=== PATIENT | male | born 1975 | race Caucasian/White ===

== ENCOUNTER 2018-03-30 21:46 | Emergency (ER) | payer SELFPAY ==
[2018-03-30] MEDS ORDERED: HYDROCODONE/APAP 10/325 TAB ONE (22:40)
--- NOTE | 2018-03-30 23:12 | ER ---
Nurse's Notes [facility] Name: Ilia Kamara Age: 42 yrs Sex: Male : 1975 Arrival Date: 03/30/2018 Time: 21:47 Bed 13 Private MD: Thad Hutchison Diagnosis: Pain in left shoulder Presentation: 03/30 21:57 Presenting complaint: Patient states: left shoulder pain at joint. pt with decreased ak1 ROM in left shoulder due to pain. Transition of care: patient was not received from another setting of care. Onset of symptoms was March 30, 2018. Risk Assessment: Do you want to hurt yourself or someone else? Patient reports no desire to harm self or others. Care prior to arrival: None. 21:57 Method Of Arrival: Ambulatory ak1 21:57 Acuity: WILLI 4 ak1 Triage Assessment: 22:00 General: Appears in no apparent distress. Behavior is calm, cooperative. ak1 Historical: - Allergies: 21:59 No Known Allergies; ak1 - Home Meds: 21:59 Plavix 75 mg Oral tab [Active]; Metoprolol Tartrate Oral [Active]; Metformin Oral ak1 [Active]; levothyroxine oral [Active]; Lisinopril Oral [Active]; aspirin 81 mg Oral chew [Active]; - PMHx: 21:59 heart attack; Hypertension; Hyperlipidemia; Diabetes - NIDDM; Hypothyroidism; ak1 - PSHx: 21:59 Heart Cath; ak1 - Immunization history:: Adult Immunizations unknown. - Social history:: Smoking status: Patient uses tobacco products, smokes two packs cigarettes per day. - Ebola Screening: : No symptoms or risks identified at this time. Screenin:59 Abuse screen: Denies threats or abuse. Denies injuries from another. Nutritional ak1 screening: No deficits noted. Tuberculosis screening: No symptoms or risk factors identified. Fall Risk None identified. Assessment: 23:38 Reassessment: Patient appears in no apparent distress at this time. Patient is alert, aa1 oriented x 3, equal unlabored respirations, skin warm/dry/pink. Discussed d/c \T\ f/u instructions with pt \T\ spouse; denies questions or concerns at this time. Vital Signs: 21:59 BP 152 / 85; Pulse 88; Resp 18; Temp 98.8(O); Pulse Ox 97% on R/A; Weight 158.76 kg ak1 (R); Height 6 ft. 2 in. (187.96 cm) (R); Pain 9/10; 23:38 BP 149 / 81; Pulse 85; Resp 18; Pulse Ox 99% on R/A; Pain 6/10; aa1 21:59 Body Mass Index 44.94 (158.76 kg, 187.96 cm) ak1 ED Course: 21:47 Patient arrived in ED. ds1 21:47 Thad Hutchison MD is Private Physician. ds1 21:57 Triage completed. ak1 21:59 Arm band placed on Patient placed in an exam room, on a stretcher, Patient notified of ak1 wait time. 22:00 Patient has correct armband on for positive identification. ak1 22:05 Tremaine Winter NP is PHCP. pm1 22:05 David Coy MD is Attending Physician. pm1 22:14 Anastacia Ureña RN is Primary Nurse. aa1 23:09 Afshin Grimm MD is Referral Physician. pm1 23:38 No provider procedures requiring assistance completed. Patient did not have IV access aa1 during this emergency room visit. Sling applied to left arm. 03/31 00:27 Shoulder Left (2 View) XRAY In Process Unspecified. EDMS Administered Medications: 03/30 22:37 Drug: [place] 10 mg-325 mg 1 tabs Route: PO; aa1 23:38 Follow up: Response: No adverse reaction; Pain is decreased aa1 Outcome: 23:12 Discharge ordered by . pm1 23:38 Discharged to home ambulatory, with significant other. aa1 23:38 Condition: good 23:38 Discharge instructions given to patient, significant other, Instructed on discharge instructions, follow up and referral plans. medication usage, Demonstrated understanding of instructions, follow-up care, medications, Prescriptions given X 1. 23:41 Patient left the ED. aa1 Signatures: Dispatcher [employer] EDMS Anastacia Ureña, RN RN aa1 Rosie Delgadillo ds1 Leslie Cardona RN RN ak1 Tremaine Winter NP SHELL MACHINE OPERATOR pm1
--- NOTE | 2018-03-30 23:12 | EDPHYS ---
Physician Documentation [facility] Name: Ilia Kamara Age: 42 yrs Sex: Male : 1975 Arrival Date: 03/30/2018 Time: 21:47 Bed 13 Private MD: Thad Hutchison ED Physician David Coy HPI: 03/30 23:02 This 42 yrs old Male presents to ER via Ambulatory with complaints of Left pm1 Shoulder Pain. 23:02 The patient or guardian complains of decreased range of motion, pain, that is acute. pm1 left shoulder. Context: The problem was sustained at home, resulted from Thinks he sleep wrong on it, The patient experiences decreased range of motion, when attempts to raise arm, The patient reports no obvious deformity. Onset: The symptoms/episode began/occurred 1 week(s) ago. Modifying factors: the symptoms are alleviated by holding left arm against his body, The symptoms are aggravated by movement, rotation of arm. Associated signs and symptoms: Pertinent negatives: abdominal pain, chest pain, shortness of breath. Severity of symptoms: in the emergency department the symptoms are unchanged. Treatment prior to arrival includes: no previous treatment. The patient has not experienced similar symptoms in the past. The patient has not recently seen a physician. Historical: - Allergies: 21:59 No Known Allergies; ak1 - Home Meds: 21:59 Plavix 75 mg Oral tab [Active]; Metoprolol Tartrate Oral [Active]; Metformin Oral ak1 [Active]; levothyroxine oral [Active]; Lisinopril Oral [Active]; aspirin 81 mg Oral chew [Active]; - PMHx: 21:59 heart attack; Hypertension; Hyperlipidemia; Diabetes - NIDDM; Hypothyroidism; ak1 - PSHx: 21:59 Heart Cath; ak1 - Immunization history:: Adult Immunizations unknown. - Social history:: Smoking status: Patient uses tobacco products, smokes two packs cigarettes per day. - Ebola Screening: : No symptoms or risks identified at this time. ROS: 23:02 Constitutional: Negative for fever, chills, and weight loss, Eyes: Negative for injury, pm1 pain, redness, and discharge, ENT: Negative for injury, pain, and discharge, Neck: Negative for injury, pain, and swelling, Cardiovascular: Negative for chest pain, palpitations, and edema, Respiratory: Negative for shortness of breath, cough, wheezing, and pleuritic chest pain, Abdomen/GI: Negative for abdominal pain, nausea, vomiting, diarrhea, and constipation, Back: Negative for injury and pain. 23:02 Skin: Negative for injury, rash, and discoloration, Neuro: Negative for headache, weakness, numbness, tingling, and seizure. 23:02 MS/extremity: Positive for decreased range of motion, pain, of the left shoulder, Negative for deformity, paresthesias. Exam: 23:02 Constitutional: This is a well developed, well nourished patient who is awake, alert, pm1 and in no acute distress. Head/Face: Normocephalic, atraumatic. Eyes: Pupils equal round and reactive to light, extra-ocular motions intact. Lids and lashes normal. Conjunctiva and sclera are non-icteric and not injected. Cornea within normal limits. Periorbital areas with no swelling, redness, or edema. ENT: Nares patent. No nasal discharge, no septal abnormalities noted. Tympanic membranes are normal and external auditory canals are clear. Oropharynx with no redness, swelling, or masses, exudates, or evidence of obstruction, uvula midline. Mucous membranes moist. Neck: Trachea midline, no thyromegaly or masses palpated, and no cervical lymphadenopathy. Supple, full range of motion without nuchal rigidity, or vertebral point tenderness. No Meningismus. Chest/axilla: Normal chest wall appearance and motion. Nontender with no deformity. No lesions are appreciated. Cardiovascular: Regular rate and rhythm with a normal S1 and S2. No gallops, murmurs, or rubs. No pulse deficits. Respiratory: Lungs have equal breath sounds bilaterally, clear to auscultation and percussion. No rales, rhonchi or wheezes noted. No increased work of breathing, no retractions or nasal flaring. Abdomen/GI: Soft, non-tender, with normal bowel sounds. No distension or tympany. No guarding or rebound. No evidence of tenderness throughout. Back: No spinal tenderness. No costovertebral tenderness. Full range of motion. Skin: Warm, dry with normal turgor. Normal color with no rashes, no lesions, and no evidence of cellulitis. 23:02 Musculoskeletal/extremity: Extremities: grossly normal except: noted in the left shoulder: tenderness, focal tenderness at the supraspinatus insertion point. Patient unable to lift up left arm actively and passively above his left shoulder due to pain. left shoulder pain with passive left arm rotation, Circulation is intact in all extremities. Sensation intact. 23:02 Neuro: Orientation: is normal, Motor: moves all fours, Sensation: is normal, no obvious gross deficits. Vital Signs: 21:59 BP 152 / 85; Pulse 88; Resp 18; Temp 98.8(O); Pulse Ox 97% on R/A; Weight 158.76 kg ak1 (R); Height 6 ft. 2 in. (187.96 cm) (R); Pain 9/10; 23:38 BP 149 / 81; Pulse 85; Resp 18; Pulse Ox 99% on R/A; Pain 6/10; aa1 21:59 Body Mass Index 44.94 (158.76 kg, 187.96 cm) ak1 MDM: 22:05 Patient medically screened. pm1 23:07 Data reviewed: vital signs. Data interpreted: Pulse oximetry: on room air is 97 %. pm1 Interpretation: normal. Counseling: I had a detailed discussion with the patient and/or guardian regarding: the historical points, exam findings, and any diagnostic results supporting the discharge/admit diagnosis, radiology results, the need for outpatient follow up, for definitive care, a orthopedic surgeon, MRI, to return to the emergency department if symptoms worsen or persist or if there are any questions or concerns that arise at home. 23:07 Differential diagnosis: adhesive capsulitis, rotator cuff injury, arthritis. pm1 03/30 22:11 Order name: Shoulder Left (2 View) XRAY pm1 03/30 22:11 Order name: Sling; Complete Time: 23:38 pm1 Administered Medications: 22:37 Drug: [place] 10 mg-325 mg 1 tabs Route: PO; aa1 23:38 Follow up: Response: No adverse reaction; Pain is decreased aa1 Disposition: 03/31 03:09 Co-signature as Attending Physician, David Coy MD. Disposition: 03/30/18 23:12 Discharged to Home. Impression: Pain in left shoulder. - Condition is Stable. - Discharge Instructions: Shoulder Pain, How to Use a Sling. - Prescriptions for Tylenol- Codeine #3 300-30 mg Oral Tablet - take 2 tablets by ORAL route every 6 hours As needed; 20 tablet. - Medication Reconciliation Form, Thank You Letter, Prescription Opioid Use form. - Follow up: Emergency Department; When: As needed; Reason: Worsening of condition. Follow up: Afshin Grimm MD; When: 2 - 3 days; Reason: Recheck today's complaints, Continuance of care, Re-evaluation by your physician. - Problem is new. - Symptoms have improved. Signatures: Dispatcher [employer] EDMS Anastacia Ureña RN RN aa1 Leslie Cardona RN RN ak1 Tremaine Winter, EXHAUST WORKER EXHAUST WORKER pm1 David Coy MD MD gs Corrections: (The following items were deleted from the chart) 03/30 23:41 23:12 03/30/2018 23:12 Discharged to Home. Impression: Pain in left shoulder. Condition aa1 is Stable. Forms are Medication Reconciliation Form, Thank You Letter, Antibiotic Education, Prescription Opioid Use. Follow up: Emergency Department; When: As needed; Reason: Worsening of condition. Follow up: Afshin Grimm; When: 2 - 3 days; Reason: Recheck today's complaints, Continuance of care, Re-evaluation by your physician. Problem is new. Symptoms have improved. pm1
[2018-03-30 23:45] VITALS: TEMP 98.8
[2018-03-30 23:47] VITALS: BP 149/81; O2SAT 99
--- NOTE | 2018-03-31 07:53 | RAD REPORT ---
EXAM DESCRIPTION: RAD - Shoulder Left 2 View - 03/31/2018 12:26 am COMPARISON: None. TECHNIQUE: Internal and external rotation views of the left shoulder were obtained. FINDINGS: There is no fracture or dislocation. AC joint within normal limits. No spurring or measura ble degenerative change. Acromial humeral joint space is normal with no soft tissue calcifications. N o acute or suspicious findings. IMPRESSION: Negative two-view left shoulder examination.
== END 2018-03-30 23:41 | disposition home or self-care (01) ==
LOC: ER 21:46
DX: M25.512 Pain in left shoulder (principal); F17.210 Nicotine dependence, cigarettes, uncomplicated; I10 Essential (primary) hypertension; E11.9 Type 2 diabetes mellitus without complications; E78.5 Hyperlipidemia, unspecified; E03.9 Hypothyroidism, unspecified; Z79.01 Long term (current) use of anticoagulants; Z79.82 Long term (current) use of aspirin
CPT/HCPCS: 99284

== ENCOUNTER 2018-05-20 11:28 | Emergency (ER) | payer SELFPAY ==
[2018-05-20] MEDS ORDERED: MEPERIDINE HCL 50 MG/ML AMP ONE (12:18)
[2018-05-20] MEDS ORDERED: NA CHLORIDE 0.9% 1,000 ML ONE (12:18)
--- NOTE | 2018-05-20 12:43 | RAD REPORT ---
EXAM DESCRIPTION: CT - Head Brain Wo Cont - 05/20/2018 12:31 pm CLINICAL HISTORY: HEADACHE COMPARISON: None. TECHNIQUE: Axial 5 mm thick images of the head were obtained without IV contrast. All CT scans are performed using dose optimization technique as appropriate and may include automated exposure control or mA/KV adjustment according to patient size. FINDINGS: No intracranial hemorrhage, mass, edema or shift of mid-line structures. No acute infarcti on changes seen. No abnormal extra-axial fluid collections. Ventricles are asymmetric as a normal kisha iant. Mastoid air cells and visualized portions of the paranasal sinuses are clear. No acute bony findings. IMPRESSION: Negative non-contrast CT head examination. No significant change from comparison.
[2018-05-20 12:53] LABS: Absolute Lymphocytes (CBC) 4.8 K/uL (0.7-4.9); Absolute Monocytes 1.2 K/uL (0.1-1.3); Absolute Neutrophil 7.5 K/uL (1.8-8.0); Eosinophils % 3.9 % (0-4.4); Hematocrit 44.1 % (39.6-49.0); MCH 32.6 pg (27.0-35.0); MCV 93.4 fL (80-100); MPV 8.8 fL (7.6-11.3); Monocytes % 8.2 % (3.3-12.3); RBC Red Blood Cell Count 4.73 M/uL (4.33-5.43)
[2018-05-20 12:58] LABS: Protime INR 0.97
[2018-05-20 13:13] LABS: BUN Blood Urea Nitrogen 24 mg/dL (7-18); Bicarbonate 24 mmol/L (21-32); Glucose Level 133 mg/dL (74-106); Potassium 3.3 mmol/L (3.5-5.1); Sodium Level 139 mmol/L (136-145); Troponin (Emerg Dept Use Only) < 0.02 ng/mL (0.0-0.045)
--- NOTE | 2018-05-20 13:26 | RAD REPORT ---
EXAM DESCRIPTION: RAD - Chest Single View - 05/20/2018 1:18 pm CLINICAL HISTORY: CHEST PAIN Chest pain. COMPARISON: CHEST SINGLE VIEW dated 04/01/2015 FINDINGS: Portable technique limits examination quality. The lungs are grossly clear. The heart is normal in size. No displaced fractures. IMPRESSION: No acute intrathoracic process suspected.
[2018-05-20] MEDS ORDERED: POTASSIUM CL SA 10 MEQ TAB PO ONE (14:20)
[2018-05-20] MEDS ORDERED: DEXAMETHASONE 4 MG/ML VIAL ONE (14:49)
[2018-05-20] MEDS ORDERED: KETOROLAC 30 MG/ML INJ ONE (14:49)
--- NOTE | 2018-05-20 15:04 | EDPHYS ---
Physician Documentation [facility] Name: Ilia Kamara Age: 42 yrs Sex: Male : 1975 Arrival Date: 05/20/2018 Time: 11:31 Bed 6 Private MD: Thad Hutchison ED Physician Silvio May HPI: 05/20 12:38 This 42 yrs old Male presents to ER via Ambulatory with complaints of rn Headache, High Blood Pressure. 12:38 The patient complains of pain to the forehead. The patient describes the headache as rn stabbing. Onset: The symptoms/episode began/occurred 1 week(s) ago. Associated signs and symptoms: Pertinent negatives: altered mental status, neck stiffness, rash, vision changes, vision loss, weakness, vertigo. Severity of symptoms: At its worst the pain was moderate, in the emergency department the pain has improved. The symptoms are alleviated by nothing. the symptoms are aggravated by nothing. The patient has experienced similar episodes in the past. Reports headache for last week, worse today, reports has not been using CPAP machine because of mucosal dryness. Reports intermittent right forehead stabbing pain, better with Excedrin and sleep, keeps coming back, worse in morning and when bending over, better with standing. No head trauma. Reports also for last 2 weeks having brief sharp chest pains, non-radiating, no trauma, has been coughing due to "crud" that rest of family has as well. . Historical: - Allergies: 11:37 No Known Allergies; hj - Home Meds: 11:37 aspirin 81 mg Oral chew [Active]; levothyroxine oral [Active]; Metformin Oral [Active]; Metoprolol Tartrate Oral [Active]; Plavix 75 mg Oral tab [Active]; lisinopril-hydrochlorothiazide oral oral [Active]; - PMHx: 11:37 Diabetes - NIDDM; heart attack; Hyperlipidemia; Hypertension; Hypothyroidism; hj - PSHx: 11:37 Heart Cath; hj - Immunization history:: Adult Immunizations up to date. - Social history:: Smoking status: Patient uses tobacco products, Patient uses alcohol. - Ebola Screening: : Patient negative for fever greater than or equal to 101.5 degrees Fahrenheit, and additional compatible Ebola Virus Disease symptoms Patient denies exposure to infectious person Patient denies travel to an Ebola-affected area in the 21 days before illness onset. - Family history:: not pertinent. - Hospitalizations: : No recent hospitalization is reported. ROS: 12:38 Constitutional: Negative for fever, chills, and weight loss, Eyes: Negative for injury, rn pain, redness, and discharge, Neck: Negative for injury, pain, and swelling, Cardiovascular: Negative for palpitations, and edema, Respiratory: Negative for shortness of breath, cough, wheezing, and pleuritic chest pain, Abdomen/GI: Negative for abdominal pain, nausea, vomiting, diarrhea, and constipation, MS/Extremity: Negative for injury and deformity, Skin: Negative for injury, rash, and discoloration, Neuro: Negative for weakness, numbness, tingling, and seizure. Exam: 12:38 Constitutional: This is a well developed, well nourished patient who is awake, alert, rn and in no acute distress. Head/Face: Normocephalic, atraumatic. Eyes: Pupils equal round and reactive to light, extra-ocular motions intact.Conjunctiva and sclera are non-icteric and not injected. Cornea within normal limits. Periorbital areas with no swelling, redness, or edema. Cardiovascular: Brian cardic, regular, no murmur. No pulse deficits. Respiratory: Lungs have equal breath sounds bilaterally, clear to auscultation. No increased work of breathing, no retractions or nasal flaring. Abdomen/GI: soft, non-tender Skin: Warm, dry with normal turgor. Normal color with no rashes, no lesions, and no evidence of cellulitis. MS/ Extremity: Pulses equal, no cyanosis. Neurovascular intact. Full, normal range of motion. Equal circumference. Neuro: Awake and alert, GCS 15, oriented to person, place, time, and situation. Cranial nerves II-XII grossly intact. Motor strength 5/5 in all extremities. Sensory grossly intact. Cerebellar exam normal. Vital Signs: 11:38 BP 147 / 84; Pulse 67; Resp 18; Temp 96.9(TE); Pulse Ox 95% on R/A; Weight 170.1 kg; hj Height 6 ft. 2 in. (187.96 cm); Pain 8/10; 12:37 BP 124 / 62; Pulse 55; Resp 14; Temp 97.6; Pulse Ox 99% on R/A; Pain 3/10; ch 14:10 BP 123 / 80; Pulse 56; Resp 11; Temp 98.8; Pulse Ox 99% on R/A; Pain 7/10; ch 14:50 BP 120 / 71; Pulse 52; Resp 11; Pulse Ox 97% on R/A; Pain 6/10; ch 15:12 BP 124 / 84; Pulse 50; Resp 14; Pulse Ox 97% ; rv 11:38 Body Mass Index 48.15 (170.10 kg, 187.96 cm) hj [place] Coma Score: 14:35 Eye Response: spontaneous(4). Verbal Response: oriented(5). Motor Response: obeys rn commands(6). Total: 15. MDM: 11:41 Patient medically screened. rn 14:34 Differential diagnosis: hypertensive headache, intracerebral hemorrhage, migraine, rn tension headache, vasomotor headache, viral syndrome, chest pain, effects 2/2 sleep apnea. 14:36 Data reviewed: vital signs, nurses notes, lab test result(s), EKG, radiologic studies, rn CT scan, plain films, and as a result, I will discharge patient. Counseling: I had a detailed discussion with the patient and/or guardian regarding: the historical points, exam findings, and any diagnostic results supporting the discharge/admit diagnosis, lab results, radiology results, the need for outpatient follow up, to return to the emergency department if symptoms worsen or persist or if there are any questions or concerns that arise at home. Response to treatment: the patient's symptoms have markedly improved after treatment. 15:02 Special discussion: I discussed with the patient/guardian in detail that at this point rn there is no indication for admission to the hospital. It is understood, however, that if the symptoms persist or worsen the patient needs to return immediately for re-evaluation. Based on the history and exam findings, there is no indication for further emergent testing or inpatient evaluation. I discussed with the patient/guardian the need to see the kiln loader for further evaluation of the symptoms. I discussed with the patient/guardian the need to see the neurologist for further evaluation of the symptoms. 15:02 ED course: IMproved, ambulatory to bathroom, recommend continuation of CPAP for sleep rn apnea and medication compliance. . 15:03 Counseling: I had a detailed discussion with the patient and/or guardian regarding: the rn presence of at least one elevated blood pressure reading (>120/80) during this emergency department visit. 05/20 12:05 Order name: Basic Metabolic Panel; Complete Time: 13:41 rn 05/20 12:05 Order name: CBC with Diff; Complete Time: 13:01 rn 05/20 12:05 Order name: Protime (+inr); Complete Time: 13:01 rn 05/20 12:05 Order name: Ptt, Activated; Complete Time: 13:01 rn 05/20 12:05 Order name: Troponin (emerg Dept Use Only); Complete Time: 13:41 rn 05/20 12:05 Order name: Flu; Complete Time: 13:41 rn 05/20 12:05 Order name: CT Head Brain wo Cont; Complete Time: 13:01 rn 05/20 12:05 Order name: XRAY Chest (1 view); Complete Time: 13:41 rn 05/20 12:05 Order name: [place] Screen Profile; Complete Time: 13:41 rn 05/20 12:05 Order name: EKG; Complete Time: 12:23 rn 05/20 12:05 Order name: Cardiac monitoring; Complete Time: 12:16 rn 05/20 12:05 Order name: EKG - Nurse/Tech; Complete Time: 12:37 rn 05/20 12:05 Order name: IV Saline Lock; Complete Time: 12:16 rn 05/20 12:05 Order name: Labs collected and sent; Complete Time: 12:37 rn 05/20 12:05 Order name: NPO; Complete Time: 12:17 rn 05/20 12:05 Order name: O2 Per Protocol; Complete Time: 12:17 rn 05/20 12:05 Order name: O2 Sat Monitoring; Complete Time: 12:17 rn Administered Medications: 12:19 Drug: Demerol 50 mg Route: IVP; Site: right antecubital; ch 12:37 Follow up: Response: No adverse reaction; Marked relief of symptoms ch 14:10 Follow up: Response: No adverse reaction; No change in condition ch 12:19 Drug: NS 0.9% 1000 ml Route: IV; Rate: 1000 ml; Site: right antecubital; ch 14:09 Follow up: IV Status: Completed infusion; IV Intake: 1000ml ch 14:09 Drug: Potassium Chloride 40 mEq Route: PO; ch 14:49 Follow up: Response: No adverse reaction ch 14:49 Drug: Decadron - Dexamethasone 10 mg Route: IVP; Site: right antecubital; ch 15:20 Follow up: Response: No adverse reaction rv 14:49 Drug: TORadol 30 mg Route: IVP; Site: right antecubital; ch 15:19 Follow up: Response: No adverse reaction rv Disposition: 05/20/18 15:04 Discharged to Home. Impression: Headache, Chest pain, unspecified, Sleep apnea. - Condition is Stable. - Discharge Instructions: Nonspecific Chest Pain, General Headache Without Cause, Hypertension. - Medication Reconciliation Form, Thank You Letter, Antibiotic Education, Prescription Opioid Use form. - Follow up: Thad Hutchison MD; When: As needed; Reason: Recheck today's complaints, Re-evaluation by your physician. - Problem is new. - Symptoms have improved. Signatures: Dispatcher [employer] EDMS Miranda King RN RN ch Nieto, Roman, MD MD rn Joaquin, Henry, RN RN hj Vicente, Ronaldo, RN RN rv Corrections: (The following items were deleted from the chart) 15:21 15:04 05/20/2018 15:04 Discharged to Home. Impression: Headache; Chest pain, rv unspecified; Sleep apnea. Condition is Stable. Forms are Medication Reconciliation Form, Thank You Letter, Antibiotic Education, Prescription Opioid Use. Follow up: Thad Hutchison; When: As needed; Reason: Recheck today's complaints, Re-evaluation by your physician. Problem is new. Symptoms have improved. rn
--- NOTE | 2018-05-20 15:04 | ER ---
Nurse's Notes [facility] Name: Ilia Kamara Age: 42 yrs Sex: Male : 1975 Arrival Date: 05/20/2018 Time: 11:31 Bed 6 Private MD: Thad Hutchison Diagnosis: Headache;Chest pain, unspecified;Sleep apnea Presentation: 05/20 11:33 Presenting complaint: Patient states: i work nights, i wake up with a headache, hj stabbing pain, checked my BP- 161/109; reports cold sweats; reports nausea; denies weakness;. Transition of care: patient was not received from another setting of care. Onset of symptoms was May 20, 2018. Risk Assessment: Do you want to hurt yourself or someone else? Patient reports no desire to harm self or others. Initial Sepsis Screen: Does the patient meet any 2 criteria? No. Patient's initial sepsis screen is negative. Does the patient have a suspected source of infection? No. Patient's initial sepsis screen is negative. Care prior to arrival: None. 11:33 Method Of Arrival: Ambulatory 11:33 Acuity: WILLI 3 hj Triage Assessment: 11:37 Headache History: Denies prior headaches. General: Appears in no apparent distress. hj uncomfortable, Behavior is calm, cooperative, appropriate for age. Pain: Complains of pain in headache Pain currently is 8 out of 10 on a pain scale. Pain began 1 day ago. Also complains of nausea. Neuro: Level of Consciousness is awake, alert, obeys commands, Oriented to person, place, time, situation, Appropriate for age. Historical: - Allergies: 11:37 No Known Allergies; hj - Home Meds: 11:37 aspirin 81 mg Oral chew [Active]; levothyroxine oral [Active]; Metformin Oral [Active]; hj Metoprolol Tartrate Oral [Active]; Plavix 75 mg Oral tab [Active]; lisinopril-hydrochlorothiazide oral oral [Active]; - PMHx: 11:37 Diabetes - NIDDM; heart attack; Hyperlipidemia; Hypertension; Hypothyroidism; hj - PSHx: 11:37 Heart Cath; hj - Immunization history:: Adult Immunizations up to date. - Social history:: Smoking status: Patient uses tobacco products, Patient uses alcohol. - Ebola Screening: : Patient negative for fever greater than or equal to 101.5 degrees Fahrenheit, and additional compatible Ebola Virus Disease symptoms Patient denies exposure to infectious person Patient denies travel to an Ebola-affected area in the 21 days before illness onset. - Family history:: not pertinent. - Hospitalizations: : No recent hospitalization is reported. Screenin:38 Abuse screen: Denies threats or abuse. Denies injuries from another. Nutritional hj screening: No deficits noted. Tuberculosis screening: No symptoms or risk factors identified. Fall Risk None identified. Assessment: 11:57 General: Appears in no apparent distress. comfortable, Behavior is calm, cooperative, ch appropriate for age. Pain: Complains of pain in top of head, forehead, right frontal area, right temporal area, right occipital area and right base of the skull Pain currently is 6 out of 10 on a pain scale. at worst was 9 out of 10 on a pain scale. Neuro: Level of Consciousness is awake, alert, obeys commands, Oriented to person, place, time, situation, Correction Worker are equal bilaterally Moves all extremities. Full function Gait is steady, Speech is normal, Facial symmetry appears normal, Facial symmetry: tongue is midline, Pupils are PERRLA, Reports headache in right frontal area, occipital area, nausea. Respiratory: Airway is patent Respiratory effort is even, unlabored, Breath sounds are diminished bilaterally. pt lung sounds are slightly muffled, pt has large amounts of adipose tissue. GI: Abdomen is non-distended, obese, Bowel sounds present X 4 quads. Abd is soft and non tender X 4 quads. Reports nausea. : No signs and/or symptoms were reported regarding the genitourinary system. Derm: Skin is intact, Skin is dry, Skin is pale, Skin temperature is warm. Musculoskeletal: No signs and/or symptoms reported regarding the musculoskeletal system. 12:23 Reassessment: Patient appears in no apparent distress at this time. computers are not ch interacting with eachother, awaiting lables to print. 12:37 Reassessment: Patient appears in no apparent distress at this time. Patient and/or ch family updated on plan of care and expected duration. Pain level reassessed. Patient is alert, oriented x 3, equal unlabored respirations, skin warm/dry/pink. Patient states feeling better. Patient states symptoms have improved. 13:11 Reassessment: Patient appears in no apparent distress at this time. Patient and/or ch family updated on plan of care and expected duration. Pain level reassessed. Patient is alert, oriented x 3, equal unlabored respirations, skin warm/dry/pink. pt states his headache is back. no s/s of distress. 14:10 Reassessment: Patient appears in no apparent distress at this time. No changes from previously documented assessment. Patient and/or family updated on plan of care and expected duration. Pain level reassessed. Patient is alert, oriented x 3, equal unlabored respirations, skin warm/dry/pink. pt falls asleep, has slight apnic period, then awakens. pt c/o headache when he wakes up. 14:50 Reassessment: Patient appears in no apparent distress at this time. Patient and/or ch family updated on plan of care and expected duration. Pain level reassessed. Patient is alert, oriented x 3, equal unlabored respirations, skin warm/dry/pink. pt states his pain is slightly better, but not gone. pt medicated per orders. no s/s of distress, urine at bedside. Vital Signs: 11:38 BP 147 / 84; Pulse 67; Resp 18; Temp 96.9(TE); Pulse Ox 95% on R/A; Weight 170.1 kg; hj Height 6 ft. 2 in. (187.96 cm); Pain 8/10; 12:37 BP 124 / 62; Pulse 55; Resp 14; Temp 97.6; Pulse Ox 99% on R/A; Pain 3/10; ch 14:10 BP 123 / 80; Pulse 56; Resp 11; Temp 98.8; Pulse Ox 99% on R/A; Pain 7/10; ch 14:50 BP 120 / 71; Pulse 52; Resp 11; Pulse Ox 97% on R/A; Pain 6/10; ch 15:12 BP 124 / 84; Pulse 50; Resp 14; Pulse Ox 97% ; rv 11:38 Body Mass Index 48.15 (170.10 kg, 187.96 cm) [place] Coma Score: 14:35 Eye Response: spontaneous(4). Verbal Response: oriented(5). Motor Response: obeys rn commands(6). Total: 15. ED Course: 11:31 Patient arrived in ED. mr 11:31 Thad Hutchison MD is Private Physician. mr 11:35 Triage completed. hj 11:38 Arm band placed on left wrist. hj 11:38 Patient has correct armband on for positive identification. Placed in gown. Bed in low hj position. Call light in reach. Side rails up X 1. Adult w/ patient. 11:41 Silvio May MD is Attending Physician. rn 11:43 Thad Castro, RN is Primary Nurse. bp 12:00 Miranda King, RN is Primary Nurse. ch 12:02 Initial lab(s) drawn, by me. Inserted saline lock: 20 gauge in right antecubital area, jb1 using aseptic technique. Blood collected. 12:29 CT completed. Patient tolerated procedure well. Patient moved to CT via stretcher. jg6 Patient moved to radiology. Patient moved back from CT. 12:30 CT Head Brain wo Cont In Process Unspecified. EDMS 12:41 EKG done, by it technical architect. reviewed by Silvio May MD. at1 13:17 X-ray completed. Portable x-ray completed in exam room. Patient tolerated procedure ls3 well. 13:19 XRAY Chest (1 view) In Process Unspecified. EDMS 14:11 No apparent distress. Resting quietly. Appears to be sleeping. ch 14:11 aquatics instructor on. Pulse ox on. NIBP on. Warm blanket given. Pillow given. Verbal ch reassurance given. 14:11 No provider procedures requiring assistance completed. ch 15:03 Thad Hutchison MD is Referral Physician. rn 15:19 IV discontinued, bleeding controlled, No redness/swelling at site. Pressure dressing rv applied. Administered Medications: 12:19 Drug: Demerol 50 mg Route: IVP; Site: right antecubital; ch 12:37 Follow up: Response: No adverse reaction; Marked relief of symptoms ch 14:10 Follow up: Response: No adverse reaction; No change in condition ch 12:19 Drug: NS 0.9% 1000 ml Route: IV; Rate: 1000 ml; Site: right antecubital; ch 14:09 Follow up: IV Status: Completed infusion; IV Intake: 1000ml ch 14:09 Drug: Potassium Chloride 40 mEq Route: PO; ch 14:49 Follow up: Response: No adverse reaction ch 14:49 Drug: Decadron - Dexamethasone 10 mg Route: IVP; Site: right antecubital; ch 15:20 Follow up: Response: No adverse reaction rv 14:49 Drug: TORadol 30 mg Route: IVP; Site: right antecubital; 15:19 Follow up: Response: No adverse reaction rv Intake: 14:09 IV: 1000ml; Total: 1000ml. Outcome: 15:04 Discharge ordered by . rn 15:19 Discharged to home ambulatory. rv 15:19 Condition: good 15:19 Discharge instructions given to patient, family, Instructed on discharge instructions, follow up and referral plans. Demonstrated understanding of instructions, follow-up care. 15:21 Patient left the ED. rv Signatures: Dispatcher [employer] EDMS Alton Covarrubias jb1 Miranda King, RN MAGEN Walters, Silvio Basilio MD MD rn Gonzales, Amanda, construction equipment operator EKG Tat1 Sumit Bryant RN MAGEN Thad Castro, RN RN Jay Guzman RN MAGEN rv Jerica Soni jg6 Alma Mcbride ls3 Corrections: (The following items were deleted from the chart) 11:40 11:38 Pulse 67bpm; Resp 18bpm; Pulse Ox 95% RA; Temp 96.9F Temporal; 170.1 kg; Height 6 hj ft. 2 in.; BMI: 48.1; Pain 8/10; hj 11:41 11:38 Pulse 67bpm; Resp 18bpm; Pulse Ox 95% RA; Temp 96.9F Temporal; 170.1 kg; Height 6 hj ft. 2 in.; BMI: 48.1; Pain 8/10; hj
[2018-05-20 15:28] VITALS: TEMP 98.8
[2018-05-20 15:29] VITALS: O2SAT 97
[2018-05-20 15:30] VITALS: BP 124/84
--- NOTE | 2018-05-20 18:05 | EKG ---
Test Date: 2018-05-20 Test Time: 12:39:49 Social Worker [employer]: [employer] ME[employer]MENT RESULTS: Intervals: Rate: 53 DE: 204 QRSD: 116 QT: 390 QTc: 365 [place]: P: 47 DE: 204 QRS: 13 T: 113 INTERPRETIVE STATEMENTS: Sinus bradycardia Inferior infarct, age undetermined Abnormal ECG Compared to ECG 09/16/2016 21:44:24 Sinus rhythm no longer present Left posterior fascicular block no longer present Myocardial infarct finding still present Electronically Signed On 05-20-18 18:03:09 DIAGRAMMER AND SEAMER by Sanju Rico
== END 2018-05-20 15:21 | disposition home or self-care (01) ==
LOC: ER 11:28
DX: R07.9 Chest pain, unspecified (principal); G47.30 Sleep apnea, unspecified; E11.9 Type 2 diabetes mellitus without complications; E78.5 Hyperlipidemia, unspecified; I10 Essential (primary) hypertension; E03.9 Hypothyroidism, unspecified
CPT/HCPCS: 36415; 70450; 71045; 80048; 84484; 85025; 85610; 85730; 86308; 87804; 93005; 96361; 96374; 96375; 99285; J2175; J7030

== ENCOUNTER 2018-09-08 23:49 | Emergency (ER) | payer SELFPAY ==
[2018-09-09 00:45] LABS: Absolute Lymphocytes (CBC) 4.1 K/uL (0.7-4.9); Absolute Monocytes 1.2 K/uL (0.1-1.3); Absolute Neutrophil 6.8 K/uL (1.8-8.0); Basophils % 1.3 % (0-1.3); Eosinophils % 4.1 % (0-4.4); Hematocrit 49.5 % (39.6-49.0); Lymphocytes % 32.5 % (15.3-44.8); MPV 8.4 fL (7.6-11.3); Monocytes % 9.1 % (3.3-12.3)
[2018-09-09 00:46] LABS: Protime INR 0.97
[2018-09-09 01:01] LABS: ALT/SGPT 42 U/L (12-78); AST/SGOT 23 U/L (15-37); Albumin 3.5 g/dL (3.4-5.0); Alkaline Phosphatase 69 U/L (45-117); BUN Blood Urea Nitrogen 19 mg/dL (7-18); Bicarbonate 27 mmol/L (21-32); Bilirubin Direct < 0.1 mg/dL (0-0.2); Bilirubin Total 0.2 mg/dL (0.2-1.0); Glucose Level 137 mg/dL (74-106); Magnesium 1.9 mg/dL (1.8-2.4); NT PRO-BNP 57 pg/mL (<125); Potassium 3.8 mmol/L (3.5-5.1); Protein, Total 7.6 g/dL (6.4-8.2); Sodium Level 140 mmol/L (136-145); Troponin (Emerg Dept Use Only) < 0.02 ng/mL (0.0-0.045)
--- NOTE | 2018-09-09 05:17 | ER ---
Nurse's Notes [facility] Name: Ilia Kamara Age: 43 yrs Sex: Male : 1975 Arrival Date: 09/08/2018 Time: 23:52 Bed 16 Private MD: Thad Hutchison Diagnosis: Chest pain, unspecified Presentation: 09/09 00:06 Presenting complaint: Patient states: Pt reports chest pain that radiated to rd arms. ea Pt reports it started yesterday and has not improved. Transition of care: patient was not received from another setting of care. Onset of symptoms was September 09, 2018. Risk Assessment: Do you want to hurt yourself or someone else? Patient reports no desire to harm self or others. Initial Sepsis Screen: Does the patient meet any 2 criteria? No. Patient's initial sepsis screen is negative. Does the patient have a suspected source of infection? No. Patient's initial sepsis screen is negative. Care prior to arrival: None. 00:06 Method Of Arrival: Wheelchair ea 00:06 Acuity: WILLI 3 ea Triage Assessment: 00:12 General: Appears uncomfortable, Behavior is calm, appropriate for age. Pain: Complains ea of pain in right clavicle, left clavicle, anterior aspect of right upper chest, anterior aspect of left upper chest, mid-sternal area, right tricep and left tricep Pain currently is 8 out of 10 on a pain scale. Neuro: Level of Consciousness is awake, alert, obeys commands, Oriented to person, place, time, situation. Cardiovascular: Patient's skin is warm and dry. Respiratory: Airway is patent Respiratory effort is even, unlabored, Respiratory pattern is regular, symmetrical. Historical: - Allergies: 00:11 No Known Allergies; ea - Home Meds: 00:11 aspirin 81 mg Oral chew [Active]; levothyroxine oral [Active]; lisinopril Oral ea [Active]; lisinopril-hydrochlorothiazide Oral [Active]; Metformin Oral [Active]; Metoprolol Tartrate Oral [Active]; Plavix 75 mg Oral tab [Active]; - PMHx: 00:11 Hypothyroidism; Hypertension; Hyperlipidemia; heart attack; Diabetes - NIDDM; ea - PSHx: 00:11 Heart Cath; ea - Immunization history:: Adult Immunizations up to date. - Social history:: Smoking status: Patient uses tobacco products, smokes one pack cigarettes per day. - Ebola Screening: : No symptoms or risks identified at this time. Screenin:15 Abuse screen: Denies threats or abuse. Denies injuries from another. Nutritional aj1 screening: No deficits noted. Tuberculosis screening: No symptoms or risk factors identified. Assessment: 00:15 General: Appears in no apparent distress. uncomfortable, Behavior is calm, cooperative, aj1 appropriate for age. Pain: Complains of pain in right clavicle, left clavicle and mid-sternal area Pain radiates to right arm and left arm Pain currently is 8 out of 10 on a pain scale. Pain began 1 day ago. Is intermittent. Neuro: Level of Consciousness is awake, alert, obeys commands, Oriented to person, place, time, situation, Speech is normal. Cardiovascular: Reports chest pain, shortness of breath, Heart tones S1 S2 present Patient's skin is warm and dry. Rhythm is sinus rhythm. Respiratory: Airway is patent Respiratory effort is even, unlabored, Respiratory pattern is regular, symmetrical, Breath sounds are diminished in left posterior lower lobe and right posterior lower lobe. GI: No signs and/or symptoms were reported involving the gastrointestinal system. : No signs and/or symptoms were reported regarding the genitourinary system. EENT: No signs and/or symptoms were reported regarding the EENT system. Derm: No signs and/or symptoms reported regarding the dermatologic system. Skin is pink, warm \T\ dry. normal. Musculoskeletal: No signs and/or symptoms reported regarding the musculoskeletal system. Circulation, motion, and sensation intact. 01:18 Reassessment: Patient appears in no apparent distress at this time. No changes from aj1 previously documented assessment. Patient and/or family updated on plan of care and expected duration. Pain level reassessed. Patient is alert, oriented x 3, equal unlabored respirations, skin warm/dry/pink. 02:44 Reassessment: Patient and/or family updated on plan of care and expected duration. Pain ea level reassessed. Patient is alert, oriented x 3, equal unlabored respirations, skin warm/dry/pink. 03:30 Reassessment: Patient and/or family updated on plan of care and expected duration. Pain ea level reassessed. Patient is alert, oriented x 3, equal unlabored respirations, skin warm/dry/pink. 04:55 Reassessment: Patient and/or family updated on plan of care and expected duration. Pain ea level reassessed. Patient is alert, oriented x 3, equal unlabored respirations, skin warm/dry/pink. Awaiting on follow up troponin Patient denies pain at this time. 04:58 Reassessment: Followed up with lab on Troponin results, Carson reported results will be ea ready in 10 minutes. Provider notified. 05:10 Reassessment: Provider notified of lab results. No new orders obtained. ea 05:32 Reassessment: Patient and/or family updated on plan of care and expected duration. Pain ea level reassessed. Patient is alert, oriented x 3, equal unlabored respirations, skin warm/dry/pink. Discharge instructions given to patient, verbalized the understanding of instruction. No s/s of pain or discomfort noted at this time. 05:32 Reassessment: Patient states feeling better. Patient states symptoms have improved. ea Vital Signs: 00:12 BP 163 / 100; Pulse 74; Resp 16; Temp 98(TE); Pulse Ox 97% on R/A; Weight 170.1 kg; ea Height 6 ft. 2 in. (187.96 cm); Pain 8/10; 01:18 BP 127 / 75; Pulse 68; Resp 18; Pulse Ox 97% on R/A; aj1 02:46 BP 127 / 80; Pulse 60; Resp 18; Pulse Ox 98% on R/A; ea 03:41 BP 143 / 77; Pulse 61; Resp 18; Pulse Ox 98% on R/A; ea 04:55 BP 114 / 70; Pulse 60; Resp 16; Pulse Ox 98% ; ea 00:12 Body Mass Index 48.15 (170.10 kg, 187.96 cm) ea ED Course: 09/08 23:52 Patient arrived in ED. am2 23:52 Thad Hutchison MD is Private Physician. am2 09/09 00:09 Triage completed. ea 00:09 Arm band placed on right wrist. Patient placed in an exam room, on a stretcher, on ea pulse oximetry. 00:14 Farzaneh Davenport FNP-C is PHCP. snw 00:15 Josefina Pisano RN is Primary Nurse. aj1 00:15 Patient has correct armband on for positive identification. groundwater monitoring technician on. Pulse aj1 ox on. NIBP on. 00:15 No provider procedures requiring assistance completed. Patient maintains SpO2 aj1 saturation greater than 95% on room air. 00:27 Inserted saline lock: 18 gauge in left antecubital area, using aseptic technique. Blood mt collected. 00:31 X-ray completed. Portable x-ray completed in exam room. Patient tolerated procedure kw well. 00:32 XRAY Chest (1 view) In Process Unspecified. EDMS 03:32 Modesto Ortiz MD is Attending Physician. snw 05:16 Thad Hutchison MD is Referral Physician. tw4 05:19 Sanju Rico MD is Referral Physician. tw4 05:38 IV discontinued, intact, bleeding controlled, No redness/swelling at site. Pressure ea dressing applied. Administered Medications: No medications were administered Outcome: 05:17 Discharge ordered by MD. tw4 05:38 Discharge instructions given to patient, Instructed on discharge instructions, follow ea up and referral plans. Demonstrated understanding of instructions, follow-up care. 05:38 Discharged to home ambulatory, with significant other. ea 05:38 Condition: improved 05:39 Patient left the ED. ea Signatures: Dispatcher [employer] EDND Josefina Pisano RN RN aj1 Farzaneh Davenport, MEAT HANGER-C MEAT HANGER-Csnw Shannon Bernal Amanda am2 Thompson, Moriah mt Antunez, Elena, RN RN ea Wadley, Terrence, MD MD tw4 Corrections: (The following items were deleted from the chart) 16 01:13 General: Appears in no apparent distress. uncomfortable, Behavior is calm, aj1 cooperative, appropriate for age, aj1 :13 Pain: Complains of pain in right clavicle, left clavicle and mid-sternal area aj1 Pain radiates to right arm and left arm Pain currently is 8 out of 10 on a pain scale. Pain began 1 day ago. Is intermittent, aj1 :13 Neuro: Level of Consciousness is awake, alert, obeys commands, Oriented to aj1 person, place, time, situation, Speech is normal, aj1 :13 Cardiovascular: Reports chest pain, shortness of breath, Heart tones S1 S2 aj1 present Patient's skin is warm and dry. Rhythm is sinus rhythm aj1 : Respiratory: Airway is patent Respiratory effort is even, unlabored, Respiratory aj1 pattern is regular, symmetrical, Breath sounds are diminished in left posterior lower lobe and right posterior lower lobe aj1 : GI: No signs and/or symptoms were reported involving the gastrointestinal system. aj1 aj1 : : No signs and/or symptoms were reported regarding the genitourinary system. aj1aj1 : EENT: No signs and/or symptoms were reported regarding the EENT system. aj1 aj1 : Derm: No signs and/or symptoms reported regarding the dermatologic system. Skin aj1 is pink, warm \T\ dry. normal, aj1 : Musculoskeletal: No signs and/or symptoms reported regarding the musculoskeletal aj1 system. Circulation, motion, and sensation intact. aj1 05:07 09/08 05:55 Reassessment: Patient and/or family updated on plan of care and expected ea duration. Pain level reassessed. Patient is alert, oriented x 3, equal unlabored respirations, skin warm/dry/pink. Awaiting on follow up troponin Patient denies pain at this time. ea
--- NOTE | 2018-09-09 05:18 | EDPHYS ---
Physician Documentation [facility] Name: Ilia Kamara Age: 43 yrs Sex: Male : 1975 Arrival Date: 09/08/2018 Time: 23:52 Bed 16 Private MD: Thad Hutchison ED Physician Modesto Ortiz HPI: 09/09 02:54 This 43 yrs old Male presents to ER via Wheelchair with complaints of Chest snw Pain, Arm Pain. 02:54 The patient or guardian reports chest pain that is located primarily in the anterior snw chest wall, left. Onset: gradually, 1 day(s) ago, and became persistent. The pain does not radiate. Associated signs and symptoms: The patient has no apparent associated signs or symptoms. The chest pain is described as a pressure. Duration: The patient or guardian reports multiple episodes, with no pattern. Severity of pain: At its worst the pain was moderate just prior to arrival. The patient has experienced similar episodes in the past. It is unknown whether or not the patient has recently seen a physician. last stress test 5yr ago with Dr. Squires. Dr. Hutchison is pt's PCP. Historical: - Allergies: 00:11 No Known Allergies; ea - Home Meds: 00:11 aspirin 81 mg Oral chew [Active]; levothyroxine oral [Active]; lisinopril Oral ea [Active]; lisinopril-hydrochlorothiazide Oral [Active]; Metformin Oral [Active]; Metoprolol Tartrate Oral [Active]; Plavix 75 mg Oral tab [Active]; - PMHx: 00:11 Hypothyroidism; Hypertension; Hyperlipidemia; heart attack; Diabetes - NIDDM; ea - PSHx: 00:11 Heart Cath; ea - Immunization history:: Adult Immunizations up to date. - Social history:: Smoking status: Patient uses tobacco products, smokes one pack cigarettes per day. - Ebola Screening: : No symptoms or risks identified at this time. ROS: 02:53 Constitutional: Negative for fever, chills, and weight loss, Eyes: Negative for injury, snw pain, redness, and discharge, ENT: Negative for injury, pain, and discharge, Neck: Negative for injury, pain, and swelling, Respiratory: Negative for shortness of breath, cough, wheezing, and pleuritic chest pain, Abdomen/GI: Negative for abdominal pain, nausea, vomiting, diarrhea, and constipation, Back: Negative for injury and pain, : Negative for injury, bleeding, discharge, and swelling, MS/Extremity: Negative for injury and deformity, Skin: Negative for injury, rash, and discoloration, Neuro: Negative for headache, weakness, numbness, tingling, and seizure. 02:53 Cardiovascular: Positive for chest pain, orthopnea. Exam: 02:53 Constitutional: This is a well developed, obese patient who is awake, alert, and in no snw acute distress. Head/Face: Normocephalic, atraumatic. Eyes: Pupils equal round and reactive to light, extra-ocular motions intact. Lids and lashes normal. Conjunctiva and sclera are non-icteric and not injected. Cornea within normal limits. Periorbital areas with no swelling, redness, or edema. ENT: Nares patent. No nasal discharge, no septal abnormalities noted. Tympanic membranes are normal and external auditory canals are clear. Oropharynx with no redness, swelling, or masses, exudates, or evidence of obstruction, uvula midline. Mucous membranes moist. Neck: Trachea midline, no thyromegaly or masses palpated, and no cervical lymphadenopathy. Supple, full range of motion without nuchal rigidity, or vertebral point tenderness. No Meningismus. Chest/axilla: Normal chest wall appearance and motion. Nontender with no deformity. No lesions are appreciated. Cardiovascular: Regular rate and rhythm with a normal S1 and S2. No gallops, murmurs, or rubs. Normal PMI, no JVD. No pulse deficits. Respiratory: Lungs have equal breath sounds bilaterally, clear to auscultation and percussion. No rales, rhonchi or wheezes noted. No increased work of breathing, no retractions or nasal flaring. Abdomen/GI: Soft, non-tender, with normal bowel sounds. No distension or tympany. No guarding or rebound. No evidence of tenderness throughout. Back: No spinal tenderness. No costovertebral tenderness. Full range of motion. Skin: Warm, dry with normal turgor. Normal color with no rashes, no lesions, and no evidence of cellulitis. MS/ Extremity: Pulses equal, no cyanosis. Neurovascular intact. Full, normal range of motion. Neuro: Awake and alert, GCS 15, oriented to person, place, time, and situation. Cranial nerves II-XII grossly intact. Motor strength 5/5 in all extremities. Sensory grossly intact. Cerebellar exam normal. Normal gait. Psych: Awake, alert, with orientation to person, place and time. Behavior, mood, and affect are within normal limits. Vital Signs: 00:12 BP 163 / 100; Pulse 74; Resp 16; Temp 98(TE); Pulse Ox 97% on R/A; Weight 170.1 kg; ea Height 6 ft. 2 in. (187.96 cm); Pain 8/10; 01:18 BP 127 / 75; Pulse 68; Resp 18; Pulse Ox 97% on R/A; aj1 02:46 BP 127 / 80; Pulse 60; Resp 18; Pulse Ox 98% on R/A; ea 03:41 BP 143 / 77; Pulse 61; Resp 18; Pulse Ox 98% on R/A; ea 04:55 BP 114 / 70; Pulse 60; Resp 16; Pulse Ox 98% ; ea 00:12 Body Mass Index 48.15 (170.10 kg, 187.96 cm) ea MDM: 00:37 Patient medically screened. snw 03:30 Data reviewed: vital signs, nurses notes. Data interpreted: Pulse oximetry: on room air snw is 98 %. Interpretation: normal. 03:31 Transition of care: After a detail discussion of the patient's case, care is snw transferred to Modesto Ortiz MD. 09/09 00:15 Order name: Basic Metabolic Panel; Complete Time: 01:03 snw 09/09 00:15 Order name: CBC with Diff; Complete Time: 01:00 snw 09/09 00:15 Order name: LFT's; Complete Time: 01: snw 09/09 00:15 Order name: Magnesium; Complete Time: 01:03 snw 09/09 00:15 Order name: NT PRO-BNP; Complete Time: 01:03 snw 09/09 00:15 Order name: PT-INR; Complete Time: 01:00 snw 09/09 00:15 Order name: Troponin (emerg Dept Use Only); Complete Time: 01:03 snw 09/09 00:15 Order name: XRAY Chest (1 view); Complete Time: 12:55 snw 09/09 00:15 Order name: EKG; Complete Time: 00:16 09/09 00:15 Order name: Cardiac monitoring; Complete Time: 00:09/09 00:15 Order name: EKG - Nurse/Tech; Complete Time: 00:09/09 00:15 Order name: IV Saline Lock; Complete Time: 00:09/09 03:15 Order name: Troponin (emerg Dept Use Only); Complete Time: 12:55 09/09 00:15 Order name: Labs collected and sent; Complete Time: 00:09/09 00:15 Order name: O2 Per Protocol; Complete Time: 00:09/09 00:15 Order name: O2 Sat Monitoring; Complete Time: 00: snw Administered Medications: No medications were administered Disposition: 06:44 Co-signature as Attending Physician, Farzaneh VARGAS I agree with the assessment tw4 and plan of care. Disposition: 09/09/18 05:17 Discharged to Home. Impression: Chest pain, unspecified. - Condition is Stable. - Discharge Instructions: Nonspecific Chest Pain, Pain Without a Known Cause, Coronary Angiogram. - Work release form, Medication Reconciliation Form, Thank You Letter, Antibiotic Education, Prescription Opioid Use form. - Follow up: Thad Hutchison MD; When: Upon discharge from the Emergency Department; Reason: If symptoms return, Recheck today's complaints, Continuance of care. Follow up: Sanju Rico MD; When: Upon discharge from the Emergency Department; Reason: If symptoms return, Recheck today's complaints, Continuance of care. - Problem is new. - Symptoms have improved. Addendum: 09/10/2018 14:25 Addendum: At \R\10:00 AM today, I was made aware of the fact that Mr. Kamara had been kdr discharged after having serial cardiac enzymes which were increasing. I placed a call to Mr. Kamara at that time and left a message. He has now returned my call. He indicated that he was doing better but that he continued to have chest pain though not as severe as on his prior visit. I informed of the abnormal cardiac enzymes as the reason for him to return. He was at work when we talked down in [place]. He indicated that he could not come back until later this evening. I advised him to return JORDYN and to go to the nearest ED should his pain worsen. Signatures: Dispatcher [employer] EDMS Francisco Ascencio MD MD kdr Therrien, Shelly, ENTERTAINMENT DIRECTOR-C ENTERTAINMENT DIRECTOR-Csnw Sophie Miller, RN RN Modesto Hewitt MD MD tw4 Corrections: (The following items were deleted from the chart) 09/09 05:19 05:17 09/09/2018 05:17 Discharged to Home. Impression: Chest pain, unspecified. tw4 Condition is Stable. Forms are Medication Reconciliation Form, Thank You Letter, Antibiotic Education, Prescription Opioid Use. Follow up: Thad Hutchison; When: Upon discharge from the Emergency Department; Reason: If symptoms return, Recheck today's complaints, Continuance of care. Problem is new. Symptoms have improved. tw4 05:39 05:19 09/09/2018 05:17 Discharged to Home. Impression: Chest pain, unspecified. ea Condition is Stable. Discharge Instructions: Nonspecific Chest Pain, Pain Without a Known Cause, Coronary Angiogram. Forms are Medication Reconciliation Form, Thank You Letter, Antibiotic Education, Prescription Opioid Use, Work release form. Follow up: Thad Hutchison; When: Upon discharge from the Emergency Department; Reason: If symptoms return, Recheck today's complaints, Continuance of care. Follow up: Sanju Rico; When: Upon discharge from the Emergency Department; Reason: If symptoms return, Recheck today's complaints, Continuance of care. Problem is new. Symptoms have improved. tw4
[2018-09-09 05:47] VITALS: TEMP 98
[2018-09-09 05:50] VITALS: O2SAT 98
[2018-09-09 05:53] VITALS: BP 114/70
--- NOTE | 2018-09-09 06:55 | EKG ---
Test Date: 2018-09-09 Test Time: 00:01:37 Cash Management Associate: MEASUREMENT RESULTS: Intervals: Rate: 73 ND: 206 QRSD: 106 QT: 380 QTc: 418 [place]: P: 52 ND: 206 QRS: -23 T: 97 INTERPRETIVE STATEMENTS: Normal sinus rhythm Possible Inferior infarct, age undetermined Cannot rule out Anterior infarct, age undetermined Abnormal ECG Compared to ECG 05/20/2018 12:39:49 Sinus bradycardia no longer present Myocardial infarct finding still present Electronically Signed On 09-09-18 06:54:36 DISTRICT OPERATIONS MANAGER by Sanju Rico
--- NOTE | 2018-09-09 08:48 | RAD REPORT ---
EXAM DESCRIPTION: Jake Single View09/09/2018 12:31 am CLINICAL HISTORY: Chest pain COMPARISON: 2016 FINDINGS: The lungs appear clear of acute infiltrate. The heart is normal size IMPRESSION: No acute abnormalities displayed
== END 2018-09-09 05:39 | disposition home or self-care (01) ==
LOC: ER 23:49
DX: R07.9 Chest pain, unspecified (principal); I10 Essential (primary) hypertension; E11.9 Type 2 diabetes mellitus without complications; E03.9 Hypothyroidism, unspecified; E78.5 Hyperlipidemia, unspecified; Z72.0 Tobacco use; Z79.01 Long term (current) use of anticoagulants; Z79.82 Long term (current) use of aspirin
CPT/HCPCS: 36415; 71045; 80048; 80076; 83735; 83880; 84484; 85025; 85610; 93005; 99285

== ENCOUNTER 2018-09-10 17:57 | Inpatient (IN) | payer SELFPAY ==
[2018-09-10 18:48] LABS: Absolute Lymphocytes (CBC) 4.1 K/uL (0.7-4.9); Absolute Neutrophil 7.4 K/uL (1.8-8.0); Basophils % 0.3 % (0-1.3); Eosinophils % 3.6 % (0-4.4); Lymphocytes % 31.7 % (15.3-44.8); MPV 8.6 fL (7.6-11.3); Monocytes % 7.9 % (3.3-12.3); RBC Red Blood Cell Count 5.13 M/uL (4.33-5.43)
[2018-09-10 18:49] LABS: Protime INR 1.01
[2018-09-10] MEDS ORDERED: ASPIRIN 81 MG CHEWABLE TABLET ONE (19:14)
[2018-09-10 19:17] LABS: ALT/SGPT 44 U/L (12-78); AST/SGOT 38 U/L (15-37); Albumin 3.5 g/dL (3.4-5.0); Alkaline Phosphatase 62 U/L (45-117); BUN Blood Urea Nitrogen 19 mg/dL (7-18); Bicarbonate 25 mmol/L (21-32); Bilirubin Direct < 0.1 mg/dL (0-0.2); Bilirubin Total 0.2 mg/dL (0.2-1.0); Glucose Level 133 mg/dL (74-106); Magnesium 1.9 mg/dL (1.8-2.4); NT PRO-BNP 303 pg/mL (<125); Potassium 3.7 mmol/L (3.5-5.1); Protein, Total 7.6 g/dL (6.4-8.2); Sodium Level 140 mmol/L (136-145)
[2018-09-10 19:18] LABS: Troponin (Emerg Dept Use Only) 1.64 ng/mL (0.0-0.045)
--- NOTE | 2018-09-10 19:29 | EDPHYS ---
Physician Documentation [facility] Name: Ilia Kamara Age: 43 yrs Sex: Male : 1975 Arrival Date: 09/10/2018 Time: 18:00 Bed 16 Private MD: Thad Hutchison ED Physician Francisco Ascencio HPI: 09/10 19:35 This 43 yrs old Male presents to ER via Ambulatory with complaints of snw Abnormal Lab Results. 19:35 The patient or guardian reports chest pain that is located primarily in the substernal snw area, anterior chest wall, left. Onset: 3 day(s) ago, and became persistent. The pain radiates to left neck. Associated signs and symptoms: The patient has no apparent associated signs or symptoms. The chest pain is described as causing indigestion, a pressure. Duration: The patient or guardian reports multiple episodes, that wax and wane. Severity of pain: At its worst the pain was moderate severe. The patient has experienced similar episodes in the past. The patient has not recently seen a physician. Historical: - Allergies: 18:08 No Known Drug Allergies; hb - Home Meds: 18:08 aspirin 81 mg Oral chew [Active]; levothyroxine oral [Active]; lisinopril Oral hb [Active]; lisinopril-hydrochlorothiazide Oral [Active]; Metformin Oral [Active]; Metoprolol Tartrate Oral [Active]; Plavix 75 mg Oral tab [Active]; - PMHx: 18:08 Diabetes - NIDDM; heart attack; Hyperlipidemia; Hypertension; Hypothyroidism; hb - PSHx: 18:08 Heart Cath; hb - Immunization history:: Adult Immunizations. - Social history:: Smoking status: Patient uses tobacco products, smokes one pack cigarettes per day. - Ebola Screening: : No symptoms or risks identified at this time. ROS: 19:34 Constitutional: Negative for fever, chills, and weight loss, Eyes: Negative for injury, snw pain, redness, and discharge, ENT: Negative for injury, pain, and discharge, Neck: Negative for injury, pain, and swelling, Respiratory: Negative for shortness of breath, cough, wheezing, and pleuritic chest pain, Abdomen/GI: Negative for abdominal pain, nausea, vomiting, diarrhea, and constipation, Back: Negative for injury and pain, : Negative for injury, bleeding, discharge, and swelling, MS/Extremity: Negative for injury and deformity, Skin: Negative for injury, rash, and discoloration, Neuro: Negative for headache, weakness, numbness, tingling, and seizure. 19:34 Cardiovascular: Positive for chest pain. Exam: 19:26 Head/Face: Normocephalic, atraumatic. Eyes: Pupils equal round and reactive to light, snw extra-ocular motions intact. Lids and lashes normal. Conjunctiva and sclera are non-icteric and not injected. Cornea within normal limits. Periorbital areas with no swelling, redness, or edema. ENT: Nares patent. No nasal discharge, no septal abnormalities noted. Tympanic membranes are normal and external auditory canals are clear. Oropharynx with no redness, swelling, or masses, exudates, or evidence of obstruction, uvula midline. Mucous membranes moist. Neck: Trachea midline, no thyromegaly or masses palpated, and no cervical lymphadenopathy. Supple, full range of motion without nuchal rigidity, or vertebral point tenderness. No Meningismus. Chest/axilla: Normal chest wall appearance and motion. Nontender with no deformity. No lesions are appreciated. Cardiovascular: Regular rate and rhythm with a normal S1 and S2. No gallops, murmurs, or rubs. Normal PMI, no JVD. No pulse deficits. Respiratory: Lungs have equal breath sounds bilaterally, clear to auscultation and percussion. No rales, rhonchi or wheezes noted. No increased work of breathing, no retractions or nasal flaring. Abdomen/GI: Soft, non-tender, with normal bowel sounds. No distension or tympany. No guarding or rebound. No evidence of tenderness throughout. Back: No spinal tenderness. No costovertebral tenderness. Full range of motion. Skin: Warm, dry with normal turgor. Normal color with no rashes, no lesions, and no evidence of cellulitis. MS/ Extremity: Pulses equal, no cyanosis. Neurovascular intact. Full, normal range of motion. Neuro: Awake and alert, GCS 15, oriented to person, place, time, and situation. Cranial nerves II-XII grossly intact. Motor strength 5/5 in all extremities. Sensory grossly intact. Cerebellar exam normal. Normal gait. Psych: Awake, alert, with orientation to person, place and time. Behavior, mood, and affect are within normal limits. 19:26 Constitutional: The patient appears alert, awake, obese. Vital Signs: 18:06 BP 156 / 101; Pulse 87; Resp 18; Temp 97.3; Pulse Ox 100% on R/A; Pain 0/10; hb 19:00 BP 129 / 92; Pulse 80; Resp 16; Pulse Ox 99% on R/A; jb4 20:30 BP 127 / 81; Pulse 73; Resp 16; Pulse Ox 96% on R/A; jb4 21:19 BP 118 / 80; Pulse 76; Resp 16; Pulse Ox 100% on R/A; jb4 MDM: 18:08 Patient medically screened. snw 19:26 Data reviewed: vital signs, nurses notes. Data interpreted: Pulse oximetry: on room air snw is 99 %. Interpretation: normal. Counseling: I had a detailed discussion with the patient and/or guardian regarding: the historical points, exam findings, and any diagnostic results supporting the discharge/admit diagnosis, the presence of at least one elevated blood pressure reading (>120/80) during this emergency department visit, lab results, radiology results, the need for further work-up and treatment in the hospital. Physician consultation: Ariadne Kiran MD was called at 19:27, was contacted at 19:27, regarding admission, would like consultation with Dr. Ferrari. 19:31 Physician consultation: Augustus Cao MD was called at 19:31, was contacted at 19:31, snw regarding consult, Pt to be admitted to Dr. Kiran. Hold Lovenox per Dr. Cao. Pt to have Cardiac Cath tomorrow.. 09/10 18:02 Order name: Basic Metabolic Panel snw 09/10 18:02 Order name: CBC with Diff; Complete Time: 18:49 snw 09/10 18:02 Order name: LFT's; Complete Time: 19:20 snw 09/10 18:02 Order name: Magnesium; Complete Time: 19:20 snw 09/10 18:02 Order name: NT PRO-BNP; Complete Time: 19:20 snw 09/10 18:02 Order name: PT-INR; Complete Time: 18:52 snw 09/10 18:02 Order name: Troponin (emerg Dept Use Only); Complete Time: 19:20 snw 09/10 18:03 Order name: Basic Metabolic Panel; Complete Time: 19:20 EDSD 09/10 20:38 Order name: Lipid Profile [facility] 09/10 20:38 Order name: Lipid Profile [facility] 09/10 20:38 Order name: Troponin I [facility] 09/10 20:38 Order name: Troponin I [facility] 09/10 20:38 Order name: Troponin I [facility] 09/10 20:38 Order name: Troponin I [facility] 09/10 18:02 Order name: EKG; Complete Time: 18:03 snw 09/10 18:02 Order name: Cardiac monitoring; Complete Time: 18:25 snw 09/10 18:02 Order name: EKG - Nurse/Tech; Complete Time: 18:29 snw 09/10 18:02 Order name: IV Saline Lock; Complete Time: 18:25 w 09/10 18:02 Order name: Labs collected and sent; Complete Time: 18:26 w 09/10 18:02 Order name: O2 Per Protocol; Complete Time: 18:26 [facility] 09/10 18:02 Order name: O2 Sat Monitoring; Complete Time: 18:26 [facility] 09/10 20:00 Order name: Diet Heart Healthy; Complete Time: 20:01 [facility] 09/10 20:38 Order name: CONS Physician Consult [facility] 09/10 20:38 Order name: NPO [facility] 09/10 20:38 Order name: Echo with Doppler [facility] 09/10 20:51 Order name: CL CARDIAC CATH - REQUEST [facility] 09/10 20:51 Order name: NPO [facility] Administered Medications: 19:06 Drug: Aspirin Chewable Tablet 324 mg Route: PO; jb4 19:30 Follow up: Response: No adverse reaction jb4 Disposition: 09/11 06:30 Co-signature as Attending Physician, Francisco Ascencio MD I agree with the assessment and kdr plan of care. Disposition: 09/10/18 19:29 Hospitalization ordered by Ariadne Kiran for Inpatient Admission. Preliminary diagnosis are Chest pain, unspecified, Elevated Troponin. - Bed requested for Telemetry/MedSurg (Inpatient). - Status is Inpatient Admission. jb4 - Condition is Stable. - Problem is an acute exacerbation. - Symptoms are unchanged. UTI on Admission? No Signatures: Dispatcher [employer] [facility] Francisco Ascencio MD MD [facility] Farzaneh Davenport, CAKE ICER AND PACKER-C CAKE ICER AND PACKER-Csnw Dolores Soni, RN RN Marimar Davies, MAGEN RN Sahil Trotter, MAGEN RN jb4 Corrections: (The following items were deleted from the chart) 09/10 20:47 19:29 Hospitalization Ordered by Ariadne Kiran MD for Inpatient Admission. Preliminary cg diagnosis is Chest pain, unspecified; Elevated Troponin. Bed requested for Telemetry/MedSurg (Inpatient). Status is Inpatient Admission. Condition is Stable. Problem is an acute exacerbation. Symptoms are unchanged. UTI on Admission? No. snw 22:13 20:47 09/10/2018 19:29 Hospitalization Ordered by Ariadne Kiran MD for Inpatient jb4 Admission. Preliminary diagnosis is Chest pain, unspecified; Elevated Troponin. Bed requested for Telemetry/MedSurg (Inpatient). Status is Inpatient Admission. Condition is Stable. Problem is an acute exacerbation. Symptoms are unchanged. UTI on Admission? No. cg
--- NOTE | 2018-09-10 19:29 | ER ---
Nurse's Notes [facility] Name: Ilia Kamara Age: 43 yrs Sex: Male : 1975 Arrival Date: 09/10/2018 Time: 18:00 Bed 16 Private MD: Thad Hutchison Diagnosis: Chest pain, unspecified;Elevated Troponin Presentation: 09/10 18:04 Presenting complaint: Intermittent chest pain x 3 days, recently seen in ED for same hb s/s. Pt stated "I was called and told to come back to the ER due to some abnormal labs and to get cleared by cardiology.". Transition of care: patient was not received from another setting of care. Onset of symptoms was September 10, 2018. Risk Assessment: Do you want to hurt yourself or someone else? Patient reports no desire to harm self or others. Care prior to arrival: None. 18:04 Method Of Arrival: Ambulatory hb 18:04 Acuity: WILLI 3 hb Historical: - Allergies: 18:08 No Known Drug Allergies; hb - Home Meds: 18:08 aspirin 81 mg Oral chew [Active]; levothyroxine oral [Active]; lisinopril Oral hb [Active]; lisinopril-hydrochlorothiazide Oral [Active]; Metformin Oral [Active]; Metoprolol Tartrate Oral [Active]; Plavix 75 mg Oral tab [Active]; - PMHx: 18:08 Diabetes - NIDDM; heart attack; Hyperlipidemia; Hypertension; Hypothyroidism; hb - PSHx: 18:08 Heart Cath; hb - Immunization history:: Adult Immunizations. - Social history:: Smoking status: Patient uses tobacco products, smokes one pack cigarettes per day. - Ebola Screening: : No symptoms or risks identified at this time. Screenin:20 Abuse screen: Denies threats or abuse. Denies injuries from another. Nutritional sg screening: No deficits noted. Tuberculosis screening: No symptoms or risk factors identified. Never had TB. Fall Risk None identified. Assessment: 18:23 General: Appears in no apparent distress. comfortable, well groomed, well developed, sg well nourished, Behavior is calm, cooperative, appropriate for age. Pain: Denies pain. Neuro: Level of Consciousness is awake, alert, obeys commands, Oriented to person, place, time, situation, Car Pusher are equal bilaterally Moves all extremities. Full function Gait is steady, Speech is normal, Facial symmetry appears normal, Pupils are PERRLA. Cardiovascular: Heart tones S1 S2 present Capillary refill is brisk in bilateral fingers Patient's skin is warm and dry. Chest pain is denied. Respiratory: Airway is patent Respiratory effort is even, unlabored, Respiratory pattern is regular, symmetrical. GI: No signs and/or symptoms were reported involving the gastrointestinal system. : No signs and/or symptoms were reported regarding the genitourinary system. EENT: No signs and/or symptoms were reported regarding the EENT system. Derm: Skin is pink, warm \\T\\ dry. Musculoskeletal: No signs and/or symptoms reported regarding the musculoskeletal system. 19:05 Reassessment: Patient and/or family updated on plan of care and expected duration. Pain jb4 level reassessed. Patient is alert, oriented x 3, equal unlabored respirations, skin warm/dry/pink. Cardiovascular: Heart tones S1 S2 present Patient's skin is warm and dry. Rhythm is sinus rhythm Chest pain is denied. Respiratory: Breath sounds are clear bilaterally. 20:40 Reassessment: Patient and/or family updated on plan of care and expected duration. Pain jb4 level reassessed. Patient is alert, oriented x 3, equal unlabored respirations, skin warm/dry/pink. Cardiovascular: Patient's skin is warm and dry. Rhythm is sinus rhythm Chest pain is denied. Respiratory: Denies shortness of breath. 21:18 Reassessment: Attempted to call report, instructed to wait for call back. jb4 Vital Signs: 18:06 BP 156 / 101; Pulse 87; Resp 18; Temp 97.3; Pulse Ox 100% on R/A; Pain 0/10; hb 19:00 BP 129 / 92; Pulse 80; Resp 16; Pulse Ox 99% on R/A; jb4 20:30 BP 127 / 81; Pulse 73; Resp 16; Pulse Ox 96% on R/A; jb4 21:19 BP 118 / 80; Pulse 76; Resp 16; Pulse Ox 100% on R/A; jb4 ED Course: 18:00 Patient arrived in ED. mr 18:00 Thad Hutchison MD is Private Physician. mr 18:06 Triage completed. hb 18:06 Arm band placed on. hb 18:08 Afshin Carolina, MAGEN is Primary Nurse. sg 18:08 Farzaneh Davenport F[facility]-C [facility]. snw 18:08 Francisco Ascencio MD is Attending Physician. snw 18:23 Initial lab(s) drawn, by me, sent to lab. Missed attempt(s): 20 gauge in right forearm. sg Bleeding controlled, band aid applied, catheter tip intact. 18:27 EKG done, by ED staff, reviewed by Modesto Ortiz MD. 5 18:28 Patient has correct armband on for positive identification. Placed in gown. Bed in low mh5 position. Call light in reach. Side rails up X 1. Warm blanket given. gambling monitor on. Pulse ox on. NIBP on. 19:17 Notified ED physician of a critical lab result(s). Trop 1.64. jb4 19:28 Ariadne Kiran MD is Hospitalizing Provider. snw 19:59 Sahil Trotter, RN is Primary Nurse. jb4 22:09 No provider procedures requiring assistance completed. Patient admitted, IV remains in jb4 place. Administered Medications: 19:06 Drug: Aspirin Chewable Tablet 324 mg Route: PO; jb4 19:30 Follow up: Response: No adverse reaction jb4 Outcome: 19:29 Decision to Hospitalize by Provider. snw 22:09 Admitted to Tele accompanied by [facility], via wheelchair, room 426, with chart, Report jb4 called to MAGEN Marin 22:09 Condition: stable 22:09 Discharge instructions given to patient, Instructed on the need for admit, Demonstrated understanding of instructions. 22:13 Patient left the ED. jb4 Signatures: Afshin Carolina, MAGEN US Farzaneh Davenport FNP-C FUNCTIONAL MENTAL DISABILITY TEACHER-[facility] P[facility] Walters Marimar Davies RN RN Sahil Trotter RN RN [place] [id number]
[2018-09-10] MEDS ORDERED: ACETAMINOPHEN 500 MG TAB PO PRN (20:34)
[2018-09-10 22:51] VITALS: BMI 40.7
[2018-09-10] MEDS: METOPROLOL TAR 50 MG TAB PO SCH (23:04)
[2018-09-10] MEDS: ROSUVASTATIN 10 MG TAB PO SCH (23:04)
[2018-09-11 00:19] LABS: Urine Appearance CLEAR; Urine Bilirubin NEGATIVE (NEG); Urine Blood TRACE (NEG); Urine Color YELLOW; Urine Glucose NEGATIVE (NEG); Urine Protein NEGATIVE (NEG); Urine Specific Gravity 1.025 (1.005-1.030); Urine Urobilinogen 0.2 mg/dL (0.2-1.0); Urine pH 5.5 (5.0-7.0)
[2018-09-11 00:26] LABS: Urine Microscopic Reflex ORDER UMIC
[2018-09-11 00:45] LABS: Urine Bacteria <20 /HPF (NONE SEEN); Urine Culture Reflex Order NOT NEEDED; Urine RBC <5 /HPF (NONE SEEN)
--- NOTE | 2018-09-11 03:05 | CON ---
Chief Complaint: Pain in the chest. History Of Present Illness: Mr. Kamara is 43. About 5 years ago, he had a heart attack. He had chest pain, abnormal enzymes, but the cardiac cath revealed minimal plaque. No stent was done. Since the n, he has been taking a blood pressure medicine. He is not on a lipid medicine. He takes metformin, aspirin, and Plavix. He started having chest pain several days ago, came to our ER a few days ago, was turned away, came back tonight. Troponins are elevated, they were 3 days ago as well, not as muc h. The troponin today was 1.64. Presently, he is free of chest pain. Medications: Outpatient medications have been metformin, metoprolol, aspirin, Plavix, and levothyrox ine. Physical Examination: General: He is obese, alert, oriented, pleasant, appears to be a little older than his stated age. HEENT: Normal. Lungs: Clear. Heart: Within normal limits. Abdomen: Soft. Extremities: Mild edema. Distal pulses palpable. Laboratory Data: There is no EKG to be reviewed at this point, but the report from the ER since the EKG was unremarkable. Impression: The patient has unstable angina. He should do a cardiac cath. We will keep him n.p.o. He has had a discussion of what a cardiac cath is like. He has been through it before and agrees to proceed. We plan to do this tomorrow morning and be ready to put a stent in. Dr. Rico will be e master glazier for the case. LORELEI/AMI Voice ID: [id number] Report ID: [id number]
[2018-09-11] MEDS: CLOPIDOGREL 75 MG TABLET PO SCH (04:58)
[2018-09-11] MEDS: METOPROLOL TAR 50 MG TAB PO SCH ×2 (04:58→21:30)
[2018-09-11] MEDS: ASPIRIN EC 81 MG TAB PO SCH (04:59)
[2018-09-11] MEDS ORDERED: NA CHLORIDE 0.9% 1,000 ML ONE (05:08)
[2018-09-11] MEDS ORDERED: HEPA 1000U/500MLS 1,000 UNIT/500 ML BAG IV ONE (06:50)
[2018-09-11] MEDS ORDERED: LIDOCAINE 1% MPF 30 ML VIAL ONE (06:50)
[2018-09-11] MEDS: LEVOTHYROXINE SOD 0.05 MG TABLET PO SCH (07:30)
[2018-09-11] MEDS ORDERED: NA CHLORIDE 0.9% 0 ML IV ONE (07:35)
[2018-09-11] MEDS ORDERED: MIDAZOLAM HCL 2 MG/2 ML INJ ONE (07:35)
[2018-09-11] MEDS ORDERED: ATROPINE SULF 1 MG/10 ML SYR IV ONE (07:35)
[2018-09-11] MEDS ORDERED: FENTANYL CITR 100 MCG/2 ML ONE (07:35)
--- NOTE | 2018-09-11 08:37 | P.HP ---
Certification for Inpatient Patient admitted to: Inpatient With expected LOS: >2 Midnights Patient will require the following post-hospital care: None Practitioner: I am a practitioner with admitting privileges, knowledge of patient current condition, hospital course, and medical plan of care. Services: Services provided to patient in accordance with Admission requirements found in Title 42 Section 412.3 of the Code of Federal Regulations Patient History Date of Service: 09/10/18 Reason for admission: Unstable angina History of Present Illness: Patient is a 43-year-old gentleman who came into the hospital with chest pain. Patient's history of Coronary artery Disease has been on medication. He also is a regular smoker. He states he has been taking his medications as prescribed. These included blood pressure medication and anti-platelet therapy. He was having chest pain to the anterior chest wall and it worsened so he came into the hospital. He came into the ER yesterday because of the chest discomfort. He did have some elevated troponins which was noticed by the oncoming physician. But patient had been discharged home so he was called back to the hospital. Patient's repeat troponins have remained elevated. He will be admitted to the hospital and Dr. Cao has seen him and scheduled a cardiac catheterization for in the morning. Allergies No Known Drug Allergies Allergy (Verified 03/31/15 04:07) Unknown No Known Allergies Allergy (Uncoded 03/09/16 04:50) Unknown Home Medications: Levothyroxine Sodium [Unithroid] 75 mcg PO DAILY 03/31/15 Metformin ER [Glucophage ER*] 500 mg PO DAILY 03/31/15 Clopidogrel Bisulfate [Plavix] 75 mg PO DAILY #30 tablet 04/01/15 Aspirin [Aspirin EC 81 MG] 81 mg PO DAILY 09/11/18 Lisinopril/Hydrochlorothiazide [Lisinopril-Hctz 20-12.5 mg Tab] 1 tab PO DAILY 09/11/18 Metoprolol Succinate/Hctz [Metoprolol ER-Hctz 100-12.5 mg] 100 mg PO DAILY 09/11 - Past Medical/Surgical History Diabetic: Yes -: HTN -: DC -: hypothyroidism -: depression -: NIDDM -: sleep apnea -: heart cath - Family History Father Medical History: Heart disease, Diabetes - Social History Smoking Status: Current every day smoker Alcohol use: No CD- Drugs: No Caffeine use: Yes Place of Residence: Home Review of Systems 10-point ROS is otherwise unremarkable Physical Examination - Vital Signs Temperature: 97.2 F Blood Pressure: 122/78 Pulse: 83 Respirations: 18 Pulse Ox (%): 97 - Physical Exam General: Alert, In no apparent distress, Oriented x3 HEENT: Atraumatic, PERRLA, Mucous membr. moist/pink, EOMI, Sclerae nonicteric Neck: Supple, 2+ carotid pulse no bruit, No LAD, Without JVD or thyroid abnormality Respiratory: Clear to auscultation bilaterally, Normal air movement Cardiovascular: Regular rate/rhythm, Normal S1 S2, No murmurs Gastrointestinal: Normal bowel sounds, Soft and benign, Non-distended, No tenderness Musculoskeletal: No clubbing, No contractures, No tenderness Integumentary: No rashes Neurological: Normal gait, Normal speech, Normal strength at 5/5 x4 extr, Normal tone, Sensation intact, Cranial nerves 3-12 intact, Normal affect Lymphatics: No axilla or inguinal lymphadenopathy - Studies Laboratory Data (last 24 hrs) 09/10/18 18:30: PT 11.9, INR 1.01 09/10/18 18:30: WBC 13.1 H, Hgb 16.3, Hct 48.0, Plt Count 220 09/10/18 18:20: Sodium 140, Potassium 3.7, BUN 19 H, Creatinine 1.04, Glucose 133 H, Magnesium 1.9, Total Bilirubin 0.2, AST 38 H, ALT 44, Alkaline Phosphatase 62 Assessment & Plan - Problems (Diagnosis) (1) History of coronary artery disease Current Visit: Yes Status: Acute (2) History of tobacco use Current Visit: Yes Status: Acute (3) Elevated troponin Onset Date: 03/31/15 Current Visit: No Status: Acute (4) Non-ST elevated myocardial infarction Onset Date: 03/31/15 Current Visit: No Status: Acute - Plan 1. Serial troponins and EKG 2. Appreciate Cardiology consultation; patient scheduled for cardiac catheterization in the morning 3. Counselled regarding tobacco cessation 4. Anti-platelet therapy, beta-joe, statin, and O2 as needed 5. IV morphine for pain 6. Nitro p.r.n. Discharge Plan: Home Plan to discharge in: Greater than 2 days - Advance Directives Does patient have a Living Will: No Does patient have a Durable POA for Healthcare: No - Code Status/Comfort Care Code Status Assessed: Yes Code Status: Full Code Critical Care: No Time Spent Managing PTS Care (In Minutes): 50
--- NOTE | 2018-09-11 08:45 | EKG ---
Test Date: 2018-09-10 Test Time: 18:22:00 Supervisor Pipelines: SHILOH MEASUREMENT RESULTS: Intervals: Rate: 77 ME: 188 QRSD: 108 QT: 376 QTc: 425 Clymer: P: 38 ME: 188 QRS: -31 T: 73 INTERPRETIVE STATEMENTS: Normal sinus rhythm Left axis deviation Inferior infarct, age undetermined Anterior infarct, age undetermined Abnormal ECG Compared to ECG 09/09/2018 00:01:37 Left-axis deviation now present Myocardial infarct finding still present Electronically Signed On 09-11-18 08:43:55 CAFE HELPER by Sanju Rico
[2018-09-11] MEDS ORDERED: LEVOTHYROXINE SOD 0.05 MG TABLET PO SCH (09:00)
[2018-09-11] MEDS: CITALOPRAM 10 MG TABLET PO SCH (09:00)
--- NOTE | 2018-09-11 14:04 | P.DS ---
Admission Date: 09/10/18 Discharge Date: 09/11/18 Reason for Admission: Unstable angina Consultations: Cardiology Procedures: CATH - RCA 100% and LAD with 3 lession (50%, 80% and 90%) - Problems (1) Non-ST elevated myocardial infarction Onset Date: 03/31/15 Current Visit: No Status: Acute (2) History of coronary artery disease Current Visit: Yes Status: Chronic (3) History of tobacco use Current Visit: Yes Status: Chronic (4) Morbid obesity Current Visit: Yes Status: Chronic Brief History of Present Illness: Patient is a 43-year-old gentleman who came into the hospital with chest pain. Patient's history of Coronary artery Disease has been on medication. He also is a regular smoker. He states he has been taking his medications as prescribed. These included blood pressure medication and anti-platelet therapy. He was having chest pain to the anterior chest wall and it worsened so he came into the hospital. He came into the ER yesterday because of the chest discomfort. He did have some elevated troponins which was noticed by the oncoming physician. But patient had been discharged home so he was called back to the hospital. Patient's repeat troponins have remained elevated. He will be admitted to the hospital and Dr. Cao has seen him and scheduled a cardiac catheterization for in the morning. Hospital Course: 43 y/o M admitted to hospital for NSTEMI. troponin x 2 elevated and EKG with nonspecific changes. Cardiology consulted. [facility] Cardiac Cath. Pt had cardiac cath. Consistent with RCA 100% and LAD with 3 lession (50%, 80%, 90%). Cath completed. Pt will need CABG and thus transferred to [facility] for further care. Accepted to [facility]. Vital Signs/Physical Exam: Temp Pulse Resp BP Pulse Ox 98.2 F 65 18 129/85 97 09/11/18 12:00 09/11/18 12:00 09/11/18 12:00 09/11/18 12:09/11/18 12:00 General: Alert, In no apparent distress HEENT: Atraumatic, PERRLA, EOMI Neck: Supple, JVD not distended Respiratory: Clear to auscultation bilaterally, Normal air movement Cardiovascular: Regular rate/rhythm, Normal S1 S2 Gastrointestinal: Normal bowel sounds, No tenderness Musculoskeletal: No tenderness Integumentary: No rashes Neurological: Normal speech, Normal tone, Normal affect Lymphatics: No axilla or inguinal lymphadenopathy Laboratory Data at Discharge: WBC 13.1 K/uL (4.3-10.9) H 09/10/18 18:30 Hgb 16.3 g/dL (13.6-17.9) 09/10/18 18:30 Hct 48.0 % (39.6-49.0) 09/10/18 18:30 Plt Count 220 K/uL (152-406) 09/10/18 18:30 PT 11.9 SECONDS (9.5-12.5) 09/10/18 18:30 INR 1.01 09/10/18 18:30 Sodium 140 mmol/L (136-145) 09/10/18 18:20 Potassium 3.7 mmol/L (3.5-5.1) 09/10/18 18:20 BUN 19 mg/dL (7-18) H 09/10/18 18:20 Creatinine 1.04 mg/dL (0.55-1.3) 09/10/18 18:20 Glucose 133 mg/dL (74-106) H 09/10/18 18:20 Magnesium 1.9 mg/dL (1.8-2.4) 09/10/18 18:20 Total Bilirubin 0.2 mg/dL (0.2-1.0) 09/10/18 18:20 AST 38 U/L (15-37) H 09/10/18 18:20 ALT 44 U/L (12-78) 09/10/18 18:20 Alkaline Phosphatase 62 U/L (45-117) 09/10/18 18:20 Troponin I 2.43 ng/mL (0.0-0.045) H* 09/11/18 10:26 Triglycerides 268 mg/dL (<150) H 09/11/18 02:21 Cholesterol 208 mg/dL (<200) H 09/11/18 02:21 HDL Cholesterol 35 mg/dL (40-60) L 09/11/18 02:21 Cholesterol/HDL Ratio 5.94 09/11/18 02:21 Home Medications: Levothyroxine Sodium [Unithroid] 75 mcg PO DAILY 03/31/15 Metformin ER [Glucophage ER*] 500 mg PO DAILY 03/31/15 Clopidogrel Bisulfate [Plavix] 75 mg PO DAILY #30 tablet 04/01/15 Aspirin [Aspirin EC 81 MG] 81 mg PO DAILY 09/11/18 Lisinopril/Hydrochlorothiazide [Lisinopril-Hctz 20-12.5 mg Tab] 1 tab PO DAILY 09/11/18 Metoprolol Succinate/Hctz [Metoprolol ER-Hctz 100-12.5 mg] 100 mg PO DAILY 09/11
[2018-09-11] MEDS ORDERED: ENOXAPARIN 40 MG/0.4 ML SQ SCH (17:00)
--- NOTE | 2018-09-11 19:41 | OP ---
Date of Procedure: 09/11/2018 Surgeon: Sanju Rico MD Climate Change Analyst: Desmond Platt. Admitted to Dr. Kiran on 09/10/2018 with subendocardial WA. Procedure In Detail: The patient was brought to the wood preserving plant laborer today on 09/11/2018. He was prepped an d draped in the routine sterile fashion. He received 2 mg of Versed and fentanyl for IV sedation. T he right groin access was obtained with a 6-Uzbek sheath. No complications there. [facility] was us ed to close to the case. Angiography using Rod catheter left and right respectively revealed a m ultiple sequential stenosis in the LAD, had a 50%, 80%, and a subtotal distal LAD after the second di agonal with PAULY-1 flow in the LAD distally. His circumflex was normal. He had a total RCA with col laterals from the circumflex to the PDA at posterolateral branch. He had anteroapical akinesis with an ejection fraction about 40%. There were no complications. Blood Loss: 5 cc. Total conscious sedation was 30 minutes. Plan: To send Mr. Kamara for a bypass surgery. CHULA/AMI Voice ID: [id number] Report ID: [id number]
[2018-09-11] MEDS: ROSUVASTATIN 10 MG TAB PO SCH (21:31)
[2018-09-11 22:54] VITALS: O2SAT 97
[2018-09-12 05:13] VITALS: TEMP 97.9
[2018-09-12] MEDS: LEVOTHYROXINE SOD 0.05 MG TABLET PO SCH (06:26)
[2018-09-12] MEDS: ASPIRIN EC 81 MG TAB PO SCH (08:06)
[2018-09-12] MEDS: METOPROLOL TAR 50 MG TAB PO SCH (08:06)
[2018-09-12] MEDS: CLOPIDOGREL 75 MG TABLET PO SCH (08:06)
[2018-09-12] MEDS: CITALOPRAM 10 MG TABLET PO SCH (08:07)
[2018-09-12 08:10] VITALS: BP 163/95
--- NOTE | 2018-09-12 08:15 | ECHO ---
HEIGHT: 6 ft 10 in WEIGHT: 389 lb 14.4 oz DATE OF STUDY: 09/11/[address]: Ariadne Kiran MD 2-DIMENSIONAL: YES M.MODE: YES DOPPLER: YES COLOR FLOW: YES TDS: NO PORTABLE: NO DEFINITY: NO BUBBLE STUDY: NO DIAGNOSIS: NSTEMI CARDIAC HISTORY: CATHERIZATION: YES SURGERY: NO PROSTHETIC VALVE: NO PACEMAKER: NO MEASUREMENTS (cm) DIASTOLIC (NORMALS) SYSTOLIC (NORMALS) IVSd 1.2 (0.6-1.2) LA Diam 4.1 (1.9-4.0) LVEF 69% LVIDd 4.4 (3.5-5.7) LVIDs 2.7 (2.0-3.5) %FS 38% LVPWd 1.3 (0.6-1.2) Ao Diam 3.0 (2.0-3.7) 2 DIMENSIONAL ASSESSMENT: RIGHT ATRIUM: NORMAL LEFT ATRIUM: DILATED RIGHT VENTRICLE: NORMAL LEFT VENTRICLE: NORMAL SIZE TRICUSPID VALVE: NORMAL MITRAL VALVE: NORMAL PULMONIC VALVE: NORMAL AORTIC VALVE: NORMAL PERICARDIAL EFFUSION: NONE AORTIC ROOT: NORMAL LEFT VENTRICULAR WALL MOTION: ANTEROAPICAL HYPOKINESIS. DOPPLER/COLOR FLOW: MILD TRICUSPID REGURGITATION. COMMENTS: MILD TRICUSPID REGURGITATION. NORMAL RIGHT VENTRICULAR SYSTOLIC PRESSURE. ANTEROAPICAL HYPOKINESIS. NORMAL OVERALL EJECTION FRACTION. LEFT ATRIAL ENLARGEMENT. TECHNOLOGIST: NEEL ZAMORA
== END 2018-09-12 08:30 | disposition short-term general hospital (02) | DRG 282 ==
LOC: ER 17:57 → ERHOLD 20:55 → 4TH 21:55
PROVIDERS: ADMIT Hospitalist; ATTEND Family Medicine
PROC: 4A023N7 Measurement of Cardiac Sampling and Pressure, Left Heart, Percutaneous Approach (ICD-10-PCS; principal; 2018-09-11)
PROC: B211YZZ Fluoroscopy of Multiple Coronary Arteries using Other Contrast (ICD-10-PCS; 2018-09-11)
PROC: B215YZZ Fluoroscopy of Left Heart using Other Contrast (ICD-10-PCS; 2018-09-11)
DX: I21.4 Non-ST elevation (NSTEMI) myocardial infarction (principal); F17.210 Nicotine dependence, cigarettes, uncomplicated; E78.5 Hyperlipidemia, unspecified; I10 Essential (primary) hypertension; E03.9 Hypothyroidism, unspecified; E11.9 Type 2 diabetes mellitus without complications; Z79.84 Long term (current) use of oral hypoglycemic drugs; Z79.02 Long term (current) use of antithrombotics/antiplatelets; I25.110 Atherosclerotic heart disease of native coronary artery with unstable angina pectoris; I25.2 Old myocardial infarction; F32.9 Major depressive disorder, single episode, unspecified; G47.30 Sleep apnea, unspecified; E66.01 Morbid (severe) obesity due to excess calories
CPT/HCPCS: 36415; 80048; 80061; 80076; 81003; 81015; 83735; 83880; 84484; 85025; 85610; 93005; 93306; 93458; 99285; C1893; J0583; J2250; J3010; J7030

== ENCOUNTER 2021-11-03 11:13 | Emergency (ER) | payer BC ==
--- OUTSIDE RECORDS SUMMARY | 2021-11-03 11:16 | XMS REPORT | Continuity of Care Document ---
:1975 Author Organization [facility] Address [address] [place] [address] [address]. [address] [place] [address] Care Team Providers Name Role Phone MICHELLE KAUR Attending Clinician Unavailable MICHELLE KAUR Admitting Clinician Unavailable Problems This patient has no known problems. Allergies, Adverse Reactions, Alerts This patient has no known allergies or adverse reactions. Medications This patient has no known medications. Procedures This patient has no known procedures. Results Test Description Test Time Test Comments Results Result Comments Source POCT-ACT 2018-09-17 13:31:00 Test Item Value Reference Range Interpretation Comme nts ACTIVATED CLOTTING TIME (BEAKER) (test [address] [facility] [address]ERTNER code = 441) [facility] 7703 0 POCT-GLUCOSE [id number] 13:11:00 Test Item Value Reference Range Interpretation Comments POC-GLUCOSE METER 88 mg/dL 70-[address] [facility] 67[address] (BEAKER) (test code = BERTNE R [facility] [address] 1538) BASIC METABOLIC [id number] 07:00:00 Test Item Value Reference Range Interpretation Comments SODIUM (BEAKER) 139 meq/L 136-145 (test code = 381) POTASSIUM (BEAKER) 4.1 meq/L 3.5-5.1 (test code = 379) CHLORIDE (BEAKER) 107 meq/L 98-107 (test code = 382) CO2 (BEAKER) (test 22 meq/L 22-29 code = 355) BLOOD UREA NITROGEN 20 mg/dL 7-21 (BEAKER) (test code = 354) CREATININE (BEAKER) 0.88 mg/dL 0.57-1.25 (test code = 358) GLUCOSE RANDOM 116 mg/dL 70-105 H (BEAKER) (test code = 652) CALCIUM (BEAKER) 9.4 mg/dL 8.4-10.2 (test code = 697) EGFR (BEAKER) (test 95 mL/min/1.73 ESTIMA KAYKAY GFR IS code = 1092) sq m NOT ACCURATE CREATININE CLEARANCE IN PREDICTING GLOMERULAR FILTRATION RATE . ESTIMATED GFR I S NOT APPLICABLE FOR DIALYSIS PATIEN TS. POCT-GLUCOSE [id number] 06:45:00 Test Item Value Reference Range Interpretation Comments POC-GLUCOSE METER 113 mg/dL 70-[address] [facility] 67[address] (BEAKER) (test code = [place] 1538) [address] CBC W/PLT COUNT & AUTO [id number] 06:34:00 Test Item Value Reference Range Interpretation Comments WHITE BLOOD CELL COUNT (BEAKER) 11.7 K/ L 3.5-10.5 H (test code = 775) RED BLOOD CELL COUNT (BEAKER) 5.01 M/ L 4.63-6.08 (test code = 761) HEMOGLOBIN (BEAKER) (test code = 16.0 GM/DL 13.7-17.5 410) HEMATOCRIT (BEAKER) (test code = 46.9 % 40.1-51.0 411) MEAN CORPUSCULAR VOLUME (BEAKER) 93.6 fL 79.0-92.2 H (test code = 753) MEAN CORPUSCULAR HEMOGLOBIN 31.9 pg 25.7-32.2 (BEAKER) (test code = 751) MEAN CORPUSCULAR HEMOGLOBIN CONC 34.1 GM/DL 32.3-36.5 (BEAKER) (test code = 752) RED CELL DISTRIBUTION WIDTH 12.3 % 11.6-14.4 (BEAKER) (test code = 412) PLATELET COUNT (BEAKER) (test 204 K/CU MM 150-450 code = 756) MEAN PLATELET VOLUME (BEAKER) 10.0 fL 9.4-12.4 (test code = 754) NUCLEATED RED BLOOD CELLS 0 /100 WBC 0-0 (BEAKER) (test code = 413) NEUTROPHILS RELATIVE PERCENT 57 % (BEAKER) (test code = 429) LYMPHOCYTES RELATIVE PERCENT 27 % (BEAKER) (test code = 430) MONOCYTES RELATIVE PERCENT 9 % (BEAKER) (test code = 431) EOSINOPHILS RELATIVE PERCENT 4 % (BEAKER) (test code = 432) BASOPHILS RELATIVE PERCENT 1 % (BEAKER) (test code = 437) NEUTROPHILS ABSOLUTE COUNT 6.70 K/ L 1.78-5.38 H (AKER) (test code = 670) LYMPHOCYTES ABSOLUTE COUNT 3.17 K/ L 1.32-3.57 (AKER) (test code = 414) MONOCYTES ABSOLUTE COUNT (BEAKER) 1.08 K/ L 0.30-0.82 H (test code = 415) EOSINOPHILS ABSOLUTE COUNT 0.51 K/ L 0.04-0.54 (BEAKER) (test code = 416) BASOPHILS ABSOLUTE COUNT (BEAKER) 0.13 K/ L 0.01-0.08 H (test code = 417) IMMATURE GRANULOCYTES-RELATIVE 1 % 0-1 PERCENT ([facility]) (test code = 2801) POCT-GLUCOSE [id number] 22:10:00 Test Item Value Reference Range Interpretation Comments POC-GLUCOSE METER 180 mg/dL 70-110 H TESTED AT [place] [address] ([facility]) (test code = [place] [facility] 1538) [address] POCT-GLUCOSE [id number] 17:53:00 Test Item Value Reference Range Interpretation Comments POC-GLUCOSE METER 112 mg/dL 70-110 H TESTED AT [place] [address] ([facility]) (test code = [facility] 1538) [address] PET, CARDIAC PET, [id number] 16:26:00Reason for exam:->LAD ischemia FINAL REPORT PROCEDURE: MYOCARDIAL METABOLISM PET IMAGING with Rest MYOCARDIAL PERFUSION PET IMAGING\XA9\CPT CODE: [id number], [id number]: LAD ischemia, BMI =47.5HISTORY: Cardiac risk factors: Diabetes, hypertension, obesity, dyslipidemia, tobacco. Other cardiovascular history: Known CAD, prior MA. Current cardiovascular-related medications: Aspirin, atorvastatin, furosemide, lisinopril, metoprolol.PROTOCOL: Limited low-dose CT imaging was performed for attenuation correction. 38.7 mCi of Rb-82 chloride was injected iv at rest, and gated PET(positron emission tomography) images were obtained. After appropriate dextrose/insulin administration, 10.2 mCi of F-18 FDG was injected iv at rest; limited low-dose CT imaging was repeated; and PET images were obtained. PERFUSION IMAGING FINDINGS: Study quality is good. Images obtained afterRb-82 injection show a severe perfusion abnormality of the apical inferior wall and moderate perfusion abnormality of the apical anterior/septal and mid anterior/anteroseptal/inferior segments. LV volume appears normal. RV volume appears normal. Gated images obtained at rest show mild hypokinesis. LVEF at rest is 49%. METABOLIC IMAGING FINDINGS: Study quality is good. Images obtained after F-18 FDG injection show markedly reduced radiotracer uptake of the apical inferior segment. IMPRESSION: 1. Abnormal study. 2. Resting imaging was performed for cardiac perfusion and metabolism. 3. Abnormal myocardial perfusion. There is a moderate-severe, small size, perfusion defect in the inferiorLV and a moderate severity, medium size, perfusion defect in the anterior/septal LV. 4. Mildly reduced resting LV function. 5. Abnormal cardiac metabolism. There is a severe, small size, defect of glucose metabolism in the apical inferior LV. 6. Combination of perfusion and metabolic images suggest nonviable myocardium in the apical inferior segment but otherwise globally viable myocardium, including the LAD distribution. 7. Extracardiac tracer distribution is normal. 8. No previous [facility] studyfor comparison. Signed: Godfrey Morejon [facility] Verified Date/Time: 09/15/2018 16:26:56 Reading Loc ation: [address] P[address]B [facility] Reading Room POCT-GLUCOSE [id number] 13:18:00 Test Item Value Reference Range Interpretation Comments POC-GLUCOSE METER 79 mg/dL 70-110 TESTED AT [place] [address] ([facility]) (test code = [facility] [place] [facility] [address] 1538) POCT-GLUCOSE [id number] 12:01:00 Test Item Value Reference Range Interpretation Comments POC-GLUCOSE METER 125 mg/dL 70-110 H TESTED AT [place] [address] ([facility]) (test code = [place] [facility] 1538) [address] POCT-GLUCOSE [id number] 09:51:00 Test Item Value Reference Range Interpretation Comments POC-GLUCOSE METER 113 mg/dL 70-110 H TESTED AT [place] [address] ([facility]) (test code = [facility] [place] [facility] 1538) [address] POCT-GLUCOSE [id number] 08:40:00 Test Item Value Reference Range Interpretation Comments POC-GLUCOSE METER 121 mg/dL 70-110 H TESTED AT [place] [address] (BEAKER) (test code = [place] 1538) [address] [id number] 07:30:00 Test Item Value Reference Range Interpretation Comments MAGNESIUM (BEAKER) (test code = 2.0 mg/dL 1.6-2.6 627) BASIC METABOLIC [id number] 07:30:00 Test Item Value Reference Range Interpretation Comments SODIUM (BEAKER) 136 meq/L 136-145 (test code = 381) POTASSIUM (BEAKER) 4.2 meq/L 3.5-5.1 (test code = 379) CHLORIDE (BEAKER) 104 meq/L 98-107 (test code = 382) CO2 (BEAKER) (test 22 meq/L 22-29 code = 355) BLOOD UREA NITROGEN 19 mg/dL 7-21 (BEAKER) (test code = 354) CREATININE (BEAKER) 0.90 mg/dL 0.57-1.25 (test code = 358) GLUCOSE RANDOM 126 mg/dL 70-105 H (BEAKER) (test code = 652) CALCIUM (BEAKER) 9.4 mg/dL 8.4-10.2 (test code = 697) EGFR (BEAKER) (test 92 mL/min/1.73 ESTIMA KAYKAY GFR IS code = 1092) sq m NOT ACCURATE CREATININE CLEARANCE IN PREDICTING GLOMERULAR FILTRATION RATE . ESTIMATED GFR I S NOT APPLICABLE FOR DIALYSIS PATIEN TS. CBC W/PLT COUNT & AUTO [id number] 07:08:00 Test Item Value Reference Range Interpretation Comments WHITE BLOOD CELL COUNT (BEAKER) 11.4 K/ L 3.5-10.5 H (test code = 775) RED BLOOD CELL COUNT (BEAKER) 5.33 M/ L 4.63-6.08 (test code = 761) HEMOGLOBIN (BEAKER) (test code = 16.9 GM/DL 13.7-17.5 410) HEMATOCRIT (BEAKER) (test code = 49.7 % 40.1-51.0 411) MEAN CORPUSCULAR VOLUME (BEAKER) 93.2 fL 79.0-92.2 H (test code = 753) MEAN CORPUSCULAR HEMOGLOBIN 31.7 pg 25.7-32.2 (BEAKER) (test code = 751) MEAN CORPUSCULAR HEMOGLOBIN CONC 34.0 GM/DL 32.3-36.5 (BEAKER) (test code = 752) RED CELL DISTRIBUTION WIDTH 12.3 % 11.6-14.4 (BEAKER) (test code = 412) PLATELET COUNT (BEAKER) (test 233 K/CU MM 150-450 code = 756) MEAN PLATELET VOLUME (BEAKER) 10.3 fL 9.4-12.4 (test code = 754) NUCLEATED RED BLOOD CELLS 0 /100 WBC 0-0 (BEAKER) (test code = 413) NEUTROPHILS RELATIVE PERCENT 57 % (BEAKER) (test code = 429) LYMPHOCYTES RELATIVE PERCENT 29 % (BEAKER) (test code = 430) MONOCYTES RELATIVE PERCENT 9 % (BEAKER) (test code = 431) EOSINOPHILS RELATIVE PERCENT 4 % (BEAKER) (test code = 432) BASOPHILS RELATIVE PERCENT 1 % (BEAKER) (test code = 437) NEUTROPHILS ABSOLUTE COUNT 6.46 K/ L 1.78-5.38 H (BEAKER) (test code = 670) LYMPHOCYTES ABSOLUTE COUNT 3.34 K/ L 1.32-3.57 (BEAKER) (test code = 414) MONOCYTES ABSOLUTE COUNT (BEAKER) 0.97 K/ L 0.30-0.82 H (test code = 415) EOSINOPHILS ABSOLUTE COUNT 0.48 K/ L 0.04-0.54 (BEAKER) (test code = 416) BASOPHILS ABSOLUTE COUNT (BEAKER) 0.13 K/ L 0.01-0.08 H (test code = 417) IMMATURE GRANULOCYTES-RELATIVE 0 % 0-1 PERCENT (BEAKER) (test code = 2801) POCT-GLUCOSE [id number] 22:22:00 Test Item Value Reference Range Interpretation Comments POC-GLUCOSE METER 120 mg/dL 70-110 H TESTED AT [place] [address] [facility]) (test code = [place] 1538) [address] POCT-GLUCOSE [id number] 17:33:00 Test Item Value Reference Range Interpretation Comments POC-GLUCOSE METER 162 mg/dL 70-110 H TESTED AT [place] [address] ([facility]) (test code = [place] 1538) [address] POCT-GLUCOSE [id number] 12:59:00 Test Item Value Reference Range Interpretation Comments POC-GLUCOSE METER 76 mg/dL 70-110 TESTED AT [facility] 6720 (BEAKER) (test code = [facility] [place] [facility] [address] 1538) POCT-GLUCOSE [id number] 09:18:00 Test Item Value Reference Range Interpretation Comments POC-GLUCOSE METER 114 mg/dL 70-[address] [facility] 6720 (BEAKER) (test code = [facility] [place] [facility] 1538) [address] [id number] 06:48:00 Test Item Value Reference Range Interpretation Comments MAGNESIUM (BEAKER) (test code = 2.1 mg/dL 1.6-2.6 627) BASIC METABOLIC [id number] 06:48:00 Test Item Value Reference Range Interpretation Comments SODIUM (BEAKER) 138 meq/L 136-145 (test code = 381) POTASSIUM (BEAKER) 4.1 meq/L 3.5-5.1 (test code = 379) CHLORIDE (BEAKER) 104 meq/L 98-107 (test code = 382) CO2 (BEAKER) (test 25 meq/L 22-29 code = 355) BLOOD UREA NITROGEN 18 mg/dL 7-21 (BEAKER) (test code = 354) CREATININE (BEAKER) 0.87 mg/dL 0.57-1.25 (test code = 358) GLUCOSE RANDOM 120 mg/dL 70-105 H (BEAKER) (test code = 652) CALCIUM (BEAKER) 9.8 mg/dL 8.4-10.2 (test code = 697) EGFR (BEAKER) (test 96 mL/min/1.73 ESTIMA KAYKAY GFR IS code = 1092) sq m NOT ACCURATE CREATININE CLEARANCE IN PREDICTING GLOMERULAR FILTRATION RATE . ESTIMATED GFR I S NOT APPLICABLE FOR DIALYSIS PATIEN TS. CBC W/PLT COUNT & AUTO [id number] 05:58:00 Test Item Value Reference Range Interpretation Comments WHITE BLOOD CELL COUNT (BEAKER) 12.2 K/ L 3.5-10.5 H (test code = 775) RED BLOOD CELL COUNT (BEAKER) 5.00 M/ L 4.63-6.08 (test code = 761) HEMOGLOBIN (BEAKER) (test code = 16.2 GM/DL 13.7-17.5 410) HEMATOCRIT (BEAKER) (test code = 46.3 % 40.1-51.0 411) MEAN CORPUSCULAR VOLUME (BEAKER) 92.6 fL 79.0-92.2 H (test code = 753) MEAN CORPUSCULAR HEMOGLOBIN 32.4 pg 25.7-32.2 H (BEAKER) (test code = 751) MEAN CORPUSCULAR HEMOGLOBIN CONC 35.0 GM/DL 32.3-36.5 (BEAKER) (test code = 752) RED CELL DISTRIBUTION WIDTH 12.8 % 11.6-14.4 (BEAKER) (test code = 412) PLATELET COUNT (BEAKER) (test 239 K/CU MM 150-450 code = 756) MEAN PLATELET VOLUME (BEAKER) 11.0 fL 9.4-12.4 (test code = 754) NUCLEATED RED BLOOD CELLS 0 /100 WBC 0-0 (BEAKER) (test code = 413) NEUTROPHILS RELATIVE PERCENT 54 % (BEAKER) (test code = 429) LYMPHOCYTES RELATIVE PERCENT 33 % (BEAKER) (test code = 430) MONOCYTES RELATIVE PERCENT 8 % (BEAKER) (test code = 431) EOSINOPHILS RELATIVE PERCENT 4 % (BEAKER) (test code = 432) BASOPHILS RELATIVE PERCENT 1 % (BEAKER) (test code = 437) NEUTROPHILS ABSOLUTE COUNT 6.52 K/ L 1.78-5.38 H (BEAKER) (test code = 670) LYMPHOCYTES ABSOLUTE COUNT 4.04 K/ L 1.32-3.57 H (BEAKER) (test code = 414) MONOCYTES ABSOLUTE COUNT (BEAKER) 0.99 K/ L 0.30-0.82 H (test code = 415) EOSINOPHILS ABSOLUTE COUNT 0.44 K/ L 0.04-0.54 (BEAKER) (test code = 416) BASOPHILS ABSOLUTE COUNT (BEAKER) 0.11 K/ L 0.01-0.08 H (test code = 417) IMMATURE GRANULOCYTES-RELATIVE 1 % 0-1 PERCENT (BEAKER) (test code = 2801) POCT-GLUCOSE [id number] 21:50:00 Test Item Value Reference Range Interpretation Comments POC-GLUCOSE METER 164 mg/dL 70-110 H TESTED AT [place] [address] ([facility]) (test code = [place] 1538) [address] POCT-GLUCOSE [id number] 18:11:00 Test Item Value Reference Range Interpretation Comments POC-GLUCOSE METER 92 mg/dL 70-110 TESTED AT [place] [address] ([facility]) (test code = [place] [facility] [address] 1538) HEPARIN ASSAY - LOW MOLECULAR [id number] 15:11:00 Test Item Value Reference Range Interpretation Comments LOVENOX-ANTI 10A ([facility]) (test 1.10 u/ml 0.60-2.00 code = 1605) Anti-Factor 10-A Level (Heparin Assay for Low Molecular Weight Heparin)Monitoring Guidelines: Blood samples should be obtained 4 hours post subcutaneous injection (time of Peak level) Therapeutic Peak Levels: 0.6-1.0 units/mL twice daily enoxaparin 1.0-2.0 units/mL once daily enoxaparinRef: CHEST 2012;141:[id number] draw 4 hours AFTER the dose is givenTROPONIN I 2018-09-13 15:09:00 Test Item Value Reference Range Interpretation Comments TROPONIN I ([facility]) (test code = 1.03 ng/mL 0.00-0.03 397) Troponin I (TnI) levels must be interpreted in the context of the presenting symptoms and the clinical findings. Elevated TnI levels indicate myocardial damage, but are not specific for ischemic heart disease. Elevated TnI levels are seen in patients with other cardiac conditions (including myocarditis and congestive heart failure), and slight TnI elevations occur in patients with other conditions, including sepsis, renal failure, acidosis, acute neurological disease, and persistent tachyarrhythmia.POCT-GLUCOSE [id number] 13:03:00 Test Item Value Reference Range Interpretation Comments POC-GLUCOSE METER 112 mg/dL 70-110 H TESTED AT [place] [address] ([facility]) (test code = [facility] [place] 1538) [address] HEMOGLOBIN [id number] 11:35:00 Test Item Value Reference Range Interpretation Comments HEMOGLOBIN A1C ([facility]) (test code = 6.2 % 4.3-6.1 H 368) POCT-GLUCOSE [id number] 08:52:00 Test Item Value Reference Range Interpretation Comments POC-GLUCOSE METER 147 mg/dL 70-110 H TESTED AT [place] [address] ([facility]) (test code = [facility] [place] 1538) [address] TROPONIN [id number] 05:31:00 Test Item Value Reference Range Interpretation Comments TROPONIN I (BEAKER) (test code = 1.51 ng/mL 0.00-0.03 HH 397) Troponin I (TnI) levels must be interpreted in the context of the presenting symptoms and the clinical findings. Elevated TnI levels indicate myocardial damage, but are not specific for ischemic heart disease. Elevated TnI levels are seen in patients with other cardiac conditions (including myocarditis and congestive heart failure), and slight TnI elevations occur in patients with other conditions, including sepsis, renal failure, acidosis, acute neurological disease, and persistent tachyarrhythmia.[id number] 05:10:00 Test Item Value Reference Range Interpretation Comments MAGNESIUM (BEAKER) (test code = 2.0 mg/dL 1.6-2.6 627) BASIC METABOLIC [id number] 05:10:00 Test Item Value Reference Range Interpretation Comments SODIUM (BEAKER) 140 meq/L 136-145 (test code = 381) POTASSIUM (BEAKER) 4.3 meq/L 3.5-5.1 (test code = 379) CHLORIDE (BEAKER) 105 meq/L 98-107 (test code = 382) CO2 (BEAKER) (test 27 meq/L 22-29 code = 355) BLOOD UREA NITROGEN 19 mg/dL 7-21 (BEAKER) (test code = 354) CREATININE (BEAKER) 0.98 mg/dL 0.57-1.25 (test code = 358) GLUCOSE RANDOM 116 mg/dL 70-105 H (BEAKER) (test code = 652) CALCIUM (BEAKER) 9.8 mg/dL 8.4-10.2 (test code = 697) EGFR (BEAKER) (test 83 mL/min/1.73 ESTIMA KAYKAY GFR IS code = 1092) sq m NOT ACCURATE CREATININE CLEARANCE IN PREDICTING GLOMERULAR FILTRATION RATE . ESTIMATED GFR I S NOT APPLICABLE FOR DIALYSIS PATIEN TS. CBC W/PLT COUNT & AUTO [id number] 04:42:00 Test Item Value Reference Range Interpretation Comments WHITE BLOOD CELL COUNT (BEAKER) 12.1 K/ L 3.5-10.5 H (test code = 775) RED BLOOD CELL COUNT (BEAKER) 4.89 M/ L 4.63-6.08 (test code = 761) HEMOGLOBIN (BEAKER) (test code = 15.5 GM/DL 13.7-17.5 410) HEMATOCRIT (BEAKER) (test code = 45.7 % 40.1-51.0 411) MEAN CORPUSCULAR VOLUME (BEAKER) 93.5 fL 79.0-92.2 H (test code = 753) MEAN CORPUSCULAR HEMOGLOBIN 31.7 pg 25.7-32.2 (BEAKER) (test code = 751) MEAN CORPUSCULAR HEMOGLOBIN CONC 33.9 GM/DL 32.3-36.5 (BEAKER) (test code = 752) RED CELL DISTRIBUTION WIDTH 12.3 % 11.6-14.4 (BEAKER) (test code = 412) PLATELET COUNT (BEAKER) (test 211 K/CU MM 150-450 code = 756) MEAN PLATELET VOLUME (BEAKER) 9.9 fL 9.4-12.4 (test code = 754) NUCLEATED RED BLOOD CELLS 0 /100 WBC 0-0 (BEAKER) (test code = 413) NEUTROPHILS RELATIVE PERCENT 52 % (BEAKER) (test code = 429) LYMPHOCYTES RELATIVE PERCENT 35 % (BEAKER) (test code = 430) MONOCYTES RELATIVE PERCENT 8 % (BEAKER) (test code = 431) EOSINOPHILS RELATIVE PERCENT 3 % (BEAKER) (test code = 432) BASOPHILS RELATIVE PERCENT 1 % (BEAKER) (test code = 437) NEUTROPHILS ABSOLUTE COUNT 6.26 K/ L 1.78-5.38 H (BEAKER) (test code = 670) LYMPHOCYTES ABSOLUTE COUNT 4.25 K/ L 1.32-3.57 H (BEAKER) (test code = 414) MONOCYTES ABSOLUTE COUNT (BEAKER) 1.02 K/ L 0.30-0.82 H (test code = 415) EOSINOPHILS ABSOLUTE COUNT 0.41 K/ L 0.04-0.54 (BEAKER) (test code = 416) BASOPHILS ABSOLUTE COUNT (BEAKER) 0.10 K/ L 0.01-0.08 H (test code = 417) IMMATURE GRANULOCYTES-RELATIVE 0 % 0-1 PERCENT (BEAKER) (test code = 2801) POCT-GLUCOSE [id number] 22:59:00 Test Item Value Reference Range Interpretation Comments POC-GLUCOSE METER 164 mg/dL 70-[address] [facility] 6720 (BEAKER) (test code = [place] 1538) [address] TROPONIN [id number] 19:52:00 Test Item Value Reference Range Interpretation Comments TROPONIN I (BEAKER) (test code = 1.28 ng/mL 0.00-0.03 397) Troponin I (TnI) levels must be interpreted in the context of the presenting symptoms and the clinical findings. Elevated TnI levels indicate myocardial damage, but are not specific for ischemic heart disease. Elevated TnI levels are seen in patients with other cardiac conditions (including myocarditis and congestive heart failure), and slight TnI elevations occur in patients with other conditions, including sepsis, renal failure, acidosis, acute neurological disease, and persistent tachyarrhythmia.HEMOGLOBIN [id number] 19:45:00 Test Item Value Reference Range Interpretation Comments HEMOGLOBIN A1C (BEAKER) (test code = 6.2 % 4.3-6.1 H 368) [id number] 19:44:00 Test Item Value Reference Range Interpretation Comments COL/EPI CLOSURE TIME (BEAKER) 172 Seconds 78-191 (test code = 1801) COL/ADP CLOSURE TIME (BEAKER) 64 Seconds 43-122 (test code = 1802) PLATELET COUNT AGG (BEAKER) (test 230 K/CU MM 150-450 code = 6436) Hematocrit <35% or platelet count <150,000/CU MM may contribute to falsely elevated PFA-100.LIPID [id number] 15:03:00 Test Item Value Reference Range Interpretation Comments TRIGLYCERIDES (BEAKER) (test code = 141 mg/dL 540) CHOLESTEROL (BEAKER) (test code = 190 mg/dL 631) HDL CHOLESTEROL (BEAKER) (test code 34 mg/dL = 976) LDL CHOLESTEROL CALCULATED (BEAKER) 128 mg/dL (test code = 633) Triglyceride Reference Range: Low Risk <150 Borderline 150-199 High Risk 200-499 Very High Risk >=500Cholesterol Reference Range: Low Risk <200 Borderline 200-239 High Risk >240HDL Cholesterol Reference Range: Low Risk >=60 High Risk <40LDL Cholesterol Reference Range: Optimal <100 Near Optimal 100-129 Borderline 130-159 High 160-189 Very High >=190BASIC METABOLIC [id number] 15:03:00 Test Item Value Reference Range Interpretation Comments SODIUM (BEAKER) 140 meq/L 136-145 (test code = 381) POTASSIUM (BEAKER) 4.0 meq/L 3.5-5.1 (test code = 379) CHLORIDE (BEAKER) 106 meq/L 98-107 (test code = 382) CO2 (BEAKER) (test 25 meq/L 22-29 code = 355) BLOOD UREA NITROGEN 14 mg/dL 7-21 (BEAKER) (test code = 354) CREATININE (BEAKER) 0.85 mg/dL 0.57-1.25 (test code = 358) GLUCOSE RANDOM 94 mg/dL 70-105 (BEAKER) (test code = 652) CALCIUM (BEAKER) 10.0 mg/dL 8.4-10.2 (test code = 697) EGFR (BEAKER) (test 98 mL/min/1.73 ESTIMA KAYKAY GFR IS code = 1092) sq m NOT ACCURATE CREATININE CLEARANCE IN PREDICTING GLOMERULAR FILTRATION RATE . ESTIMATED GFR I S NOT APPLICABLE FOR DIALYSIS PATIEN TS. CBC W/PLT COUNT & AUTO [id number] 14:42:00 Test Item Value Reference Range Interpretation Comments WHITE BLOOD CELL COUNT (BEAKER) 11.9 K/ L 3.5-10.5 H (test code = 775) RED BLOOD CELL COUNT (BEAKER) 5.06 M/ L 4.63-6.08 (test code = 761) HEMOGLOBIN (BEAKER) (test code = 16.1 GM/DL 13.7-17.5 410) HEMATOCRIT (BEAKER) (test code = 46.4 % 40.1-51.0 411) MEAN CORPUSCULAR VOLUME (BEAKER) 91.7 fL 79.0-92.2 (test code = 753) MEAN CORPUSCULAR HEMOGLOBIN 31.8 pg 25.7-32.2 (BEAKER) (test code = 751) MEAN CORPUSCULAR HEMOGLOBIN CONC 34.7 GM/DL 32.3-36.5 (BEAKER) (test code = 752) RED CELL DISTRIBUTION WIDTH 12.3 % 11.6-14.4 (BEAKER) (test code = 412) PLATELET COUNT (BEAKER) (test 217 K/CU MM 150-450 code = 756) MEAN PLATELET VOLUME (BEAKER) 10.0 fL 9.4-12.4 (test code = 754) NUCLEATED RED BLOOD CELLS 0 /100 WBC 0-0 (BEAKER) (test code = 413) NEUTROPHILS RELATIVE PERCENT 54 % (BEAKER) (test code = 429) LYMPHOCYTES RELATIVE PERCENT 33 % (BEAKER) (test code = 430) MONOCYTES RELATIVE PERCENT 9 % (BEAKER) (test code = 431) EOSINOPHILS RELATIVE PERCENT 3 % (BEAKER) (test code = 432) BASOPHILS RELATIVE PERCENT 1 % (BEAKER) (test code = 437) NEUTROPHILS ABSOLUTE COUNT 6.47 K/ L 1.78-5.38 H (BEAKER) (test code = 670) LYMPHOCYTES ABSOLUTE COUNT 3.92 K/ L 1.32-3.57 H (BEAKER) (test code = 414) MONOCYTES ABSOLUTE COUNT (BEAKER) 1.02 K/ L 0.30-0.82 H (test code = 415) EOSINOPHILS ABSOLUTE COUNT 0.38 K/ L 0.04-0.54 (BEAKER) (test code = 416) BASOPHILS ABSOLUTE COUNT (BEAKER) 0.07 K/ L 0.01-0.08 (test code = 417) IMMATURE GRANULOCYTES-RELATIVE 0 % 0-1 PERCENT (BEAKER) (test code = 2587)
[2021-11-03] MEDS ORDERED: NA CHLORIDE 0.9% 1,000 ML ONE (12:10)
[2021-11-03] MEDS ORDERED: ONDANSETRON 4 MG/2 ML VIAL ONE (12:10)
[2021-11-03] MEDS ORDERED: CLINDAMYCIN 900MG/D5W 900 MG/50 ML IVPB IV ONE (12:10)
[2021-11-03] MEDS ORDERED: NA CHLORIDE 0.9% 100 ML IV ONE (12:10)
[2021-11-03] MEDS ORDERED: MORPHINE 2 MG/ML SYR ONE (12:10)
[2021-11-03] MEDS ORDERED: CEFTRIAXONE 1000 MG/VIAL ONE (12:10)
[2021-11-03 12:16] LABS: Absolute Lymphocytes (CBC) 3.1 K/uL (0.7-4.9); Hematocrit 51.3 % (39.6-49.0); Lymphocytes % 21.9 % (15.3-44.8); MPV 7.8 fL (7.6-11.3); RBC Red Blood Cell Count 5.63 M/uL (4.33-5.43)
[2021-11-03 12:33] LABS: Albumin 3.7 g/dL (3.4-5.0); Bilirubin Total 0.7 mg/dL (0.2-1.0); Potassium 3.9 mmol/L (3.5-5.1); Protein, Total 8.3 g/dL (6.4-8.2)
--- NOTE | 2021-11-03 13:08 | RAD REPORT ---
EXAM DESCRIPTION: CTFacial Bones W Con Mpr11/03/2021 12:47 pm CLINICAL HISTORY: Right facial pain and swelling COMPARISON: None. TECHNIQUE: Computed axial tomography of the face obtained with coronal and sagittal reconstruction. 50 cc Isovue-[address] scans are performed using dose optimization technique as appropriate and may include automated exposure control or mA/KV adjustment according to patient size. FINDINGS: Edema is present within the subcutaneous tissues of the right facial/cheek. 8 millimeter low-density area is present within the soft tissue anterior to the right maxilla near mi dline. Fluid is present throughout the right maxillary sinus. A 6 millimeter lucency within a right maxillary tooth apex The parotid and submandibular glands appear unremarkable. The parapharyngeal fat is clear. Tonsillar calcification likely related to previous infection. IMPRESSION: 8 millimeter low-density area is present within the soft tissue anterior to the right ma xilla near midline. This likely represents an abscess. Acute right maxillary sinusitis . A 6 millimeter lucency within a right maxillary tooth apex consistent with abscess 1
--- NOTE | 2021-11-03 13:38 | EDPHYS ---
Physician Documentation [facility] Name: Ilia Kamara Age: 46 yrs Sex: Male : 1975 Arrival Date: 11/03/2021 Time: 11:14 Bed 11 Private MD: Nico Blackmon ED Physician Garo Minor HPI: 11/03 12:12 This 46 yrs old Male presents to ER via Ambulatory with complaints of Facial domenica Swelling. 12:12 The patient presents with broken tooth/teeth, lost tooth/teeth, pain, redness, domenica swelling. The problem is located in the frenulum, gums and right buccal mucosa. Onset: The symptoms/episode began/occurred 3 day(s) ago. Duration: The symptoms are continuous, and are steadily getting worse. Modifying factors: The symptoms are alleviated by nothing, the symptoms are aggravated by nothing. Associated signs and symptoms: The patient has no apparent associated signs or symptoms. Severity of symptoms: At their worst the symptoms were mild, moderate, in the emergency department the symptoms are unchanged. The patient has not experienced similar symptoms in the past. Historical: - Allergies: 11:31 No Known Allergies; iw - PMHx: 11:31 Diabetes - NIDDM; heart attack; Hyperlipidemia; Hypertension; Hypothyroidism; iw - Immunization history:: Adult Immunizations Client reports receiving the 2nd dose of the Covid vaccine. - Social history:: Smoking status: Patient/guardian denies using tobacco, the patient reports quitting approximately 3 years ago. - Family history:: not pertinent. ROS: 12:12 Constitutional: Negative for fever, chills, and weight loss, Eyes: Negative for injury, domenica pain, redness, and discharge, Neck: Negative for injury, pain, and swelling, Cardiovascular: Negative for chest pain, palpitations, and edema, Respiratory: Negative for shortness of breath, cough, wheezing, and pleuritic chest pain, Abdomen/GI: Negative for abdominal pain, nausea, vomiting, diarrhea, and constipation, Back: Negative for injury and pain, : Negative for injury, bleeding, discharge, and swelling, MS/Extremity: Negative for injury and deformity, Skin: Negative for injury, rash, and discoloration, Neuro: Negative for headache, weakness, numbness, tingling, and seizure, Psych: Negative for depression, anxiety, suicide ideation, homicidal ideation, and hallucinations, Allergy/Immunology: Negative for hives, rash, and allergies, Endocrine: Negative for neck swelling, polydipsia, polyuria, polyphagia, and marked weight changes, Hematologic/Lymphatic: Negative for swollen nodes, abnormal bleeding, and unusual bruising. 12:12 ENT: Positive for Teeth pain Exam: 12:12 Constitutional: This is a well developed, well nourished patient who is awake, alert, domenica and in no acute distress. Eyes: Pupils equal round and reactive to light, extra-ocular motions intact. Lids and lashes normal. Conjunctiva and sclera are non-icteric and not injected. Cornea within normal limits. Periorbital areas with no swelling, redness, or edema. Neck: Trachea midline, no thyromegaly or masses palpated, and no cervical lymphadenopathy. Supple, full range of motion without nuchal rigidity, or vertebral point tenderness. No Meningismus. Chest/axilla: Normal chest wall appearance and motion. Nontender with no deformity. No lesions are appreciated. Cardiovascular: Regular rate and rhythm with a normal S1 and S2. No gallops, murmurs, or rubs. Normal PMI, no JVD. No pulse deficits. Respiratory: Lungs have equal breath sounds bilaterally, clear to auscultation and percussion. No rales, rhonchi or wheezes noted. No increased work of breathing, no retractions or nasal flaring. Abdomen/GI: Soft, non-tender, with normal bowel sounds. No distension or tympany. No guarding or rebound. No evidence of tenderness throughout. Back: No spinal tenderness. No costovertebral tenderness. Full range of motion. Male : Normal genitalia with no discharge or lesions. Skin: Warm, dry with normal turgor. Normal color with no rashes, no lesions, and no evidence of cellulitis. MS/ Extremity: Pulses equal, no cyanosis. Neurovascular intact. Full, normal range of motion. Neuro: Awake and alert, GCS 15, oriented to person, place, time, and situation. Cranial nerves II-XII grossly intact. Motor strength 5/5 in all extremities. Sensory grossly intact. Cerebellar exam normal. Normal gait. Psych: Awake, alert, with orientation to person, place and time. Behavior, mood, and affect are within normal limits. 12:12 Head/face: Noted is swelling, tenderness, of the mouth, right jaw and left jaw. 12:55 ECG was reviewed by the Attending Physician. [facility] Vital Signs: 11:29 BP 130 / 94; Pulse 77; Resp 16; Temp 96.0; Pulse Ox 96% on R/A; iw 13:19 Pulse 74; Pulse Ox 100% on R/A; Pain 5/10; ss MDM: 11:37 Patient medically screened. [facility] 12:14 Differential diagnosis: dental caries, gingivitis, dental abscess, pericoronitis. Data [facility] reviewed: vital signs, nurses notes, lab test result(s), radiologic studies, CT scan. Data interpreted: cardiac monitor technician: rate is 77 beats/min, rhythm is regular, Pulse oximetry: on room air is 96 %. Test interpretation: by ED physician or midlevel provider: ECG, plain radiologic studies. Counseling: I had a detailed discussion with the patient and/or guardian regarding: the historical points, exam findings, and any diagnostic results supporting the discharge/admit diagnosis, lab results, radiology results, the need for outpatient follow up, for definitive care, a dentist, a family practitioner, an oral maxilofacial specialist. 11/03 11:52 Order name: CBC with Diff; Complete Time: 12:30 [facility] 11/03 11:52 Order name: Comprehensive Metabolic Panel; Complete Time: 12:55 [facility] 11/03 11:52 Order name: CT Facial Bones W/ Con \\T\\ Mpr; Complete Time: 13:35 [facility] 11/03 13:21 Order name: SARS-COV-2 RT PCR (Document "Date of Onset" if Symptomatic) 11/03 12:10 Order name: EKG; Complete Time: 12:11 [facility] 11/03 12:10 Order name: EKG - Nurse/Tech; Complete Time: 12:27 [facility] 11/03 13:55 Order name: PO challenge; Complete Time: 14:03 [facility] EC:55 Rate is 71 beats/min. Rhythm is regular. QRS [place] is Normal. TN interval is normal. QRS domenica interval is normal. QT interval is normal. No Q waves. T waves are Normal. No ST changes noted. Clinical impression: NSR w/ Non-specific ST/T Changes and No evidence of ischemia. Interpreted by me. Reviewed by me. Administered Medications: 12:13 Drug: Zofran (Ondansetron) 4 mg Route: IVP; Site: right antecubital; ss 12:42 Follow up: Response: No adverse reaction ss 12:14 Drug: NS 0.9% 1000 ml Route: IV; Rate: 1 bolus; Site: right antecubital; ss 13:30 Follow up: IV Status: Completed infusion iw 12:15 Drug: morphine 2 mg Route: IVP; Site: right antecubital; ss 13:00 Follow up: Response: No adverse reaction; Pain is decreased ss 12:18 Drug: Rocephin (cefTRIAXone) 2 grams Route: IV; Rate: per protocol; Site: right ss antecubital; 13:01 Follow up: IV Status: Completed infusion ss 13:00 Drug: Clindamycin 900 mg Route: IVPB; Infused Over: 30 mins; Site: right antecubital; ss 13:30 Follow up: IV Status: Completed infusion iw 13:00 Drug: Clindamycin 300 mg Route: PO; ss 14:03 Follow up: Response: No adverse reaction ss Disposition Summary: 11/03/21 13:54 Discharge Ordered Location: Home domenica Problem: new(11/03/21 13:54) domenica Symptoms: have improved(11/03/21 13:54) domenica Condition: Stable(11/03/21 13:54) domenica Diagnosis - Dental caries, unspecified(11/03/21 13:54) domenica - Dental root caries(11/03/21 13:54) domenica - Acute gingivitis domenica - Type 2 diabetes mellitus with hyperglycemia(11/03/21 13:54) domenica - Elevated white blood cell count(11/03/21 13:58) domenica Followup: domenica - With: - When: 2 - 3 days - Reason: Recheck today's complaints, Continuance of care, Re-evaluation by your physician Followup: domenica - With: - When: 2 - 3 days - Reason: Recheck today's complaints, Re-evaluation by your physician Discharge Instructions: - Discharge Summary Sheet domenica - Dental Caries, Adult domenica - Dental Pain domenica - Type 2 Diabetes Mellitus, Diagnosis, Adult domenica - Hyperglycemia domenica - Dental Pain, [id number] domenica - Diabetes Mellitus and Nutrition, Adult domenica Forms: - Medication Reconciliation Form domenica - Thank You Letter domenica - Antibiotic Education domenica - Prescription Opioid Use domenica - Work release form eb Prescriptions: - Clindamycin HCl 300 mg Oral Capsule - take 1 capsule by ORAL route every 6 hours for 10 days; 40 capsule; Refills: 0, [facility] Product Selection Permitted - Zofran 4 mg Oral Tablet - take 1 tablet by ORAL route every 12 hours As needed; 20 tablet; Refills: 0, [facility] Product Selection Permitted - Tylenol-Codeine #3 300 mg-30 mg Oral - take 2 tablet by ORAL route every 6 hours; 24 tablet; Refills: 0, Product domenica Selection Permitted Signatures: Dispatcher [employer] Garo Edwards MD MD cha Williams, Irene, RN RN iw Idania Guthrie RN RN ss Corrections: (The following items were deleted from the chart) 13:54 13:37 to [facility] 13:54 13:37 [facility] 13:54 13:37 Higher level of care domenica [facility] 13:54 13:37 Stable [facility] 13:54 13:37 new [facility] 13:54 13:37 have improved [facility] 13:54 13:37 Dental root caries domenica [facility] 13:54 13:37 Dental caries, unspecified - odontogenic abscesses domenica [facility] 13:54 13:37 Type 2 diabetes mellitus with hyperglycemia [facility] 13:54 13:37 Elevated white blood cell count domenica domenica
--- NOTE | 2021-11-03 13:38 | ER ---
Nurse's Notes [facility] Name: Ilia Kamara Age: 46 yrs Sex: Male : 1975 Arrival Date: 11/03/2021 Time: 11:14 Bed 11 Private MD: Nico Blackmon Diagnosis: Dental caries, unspecified;Dental root caries;Acute gingivitis;Type 2 diabetes mellitus with hyperglycemia;Elevated white blood cell count Presentation: 11/03 11:29 Chief complaint: Patient states: right sided facial swelling since Saturday, has hx of iw bad teeth, pt is cool clammy today. Coronavirus screen: At this time, the client does not indicate any symptoms associated with coronavirus-19. Ebola Screen: Patient negative for fever greater than or equal to 101.5 degrees Fahrenheit, and additional compatible Ebola Virus Disease symptoms Patient denies exposure to infectious person. Patient denies travel to an Ebola-affected area in the 21 days before illness onset. No symptoms or risks identified at this time. Initial Sepsis Screen: Does the patient meet any 2 criteria? No. Patient's initial sepsis screen is negative. Does the patient have a suspected source of infection? No. Patient's initial sepsis screen is negative. Risk Assessment: Do you want to hurt yourself or someone else? Patient reports no desire to harm self or others. Onset of symptoms was November 01, 2021. 11:29 Method Of Arrival: Ambulatory iw 11:29 Acuity: WILLI 3 iw Historical: - Allergies: 11:31 No Known Allergies; iw - PMHx: 11:31 Diabetes - NIDDM; heart attack; Hyperlipidemia; Hypertension; Hypothyroidism; iw - Immunization history:: Adult Immunizations Client reports receiving the 2nd dose of the Covid vaccine. - Social history:: Smoking status: Patient/guardian denies using tobacco, the patient reports quitting approximately 3 years ago. - Family history:: not pertinent. Screenin:38 Fall Risk None identified. iw 11:47 Abuse screen: Denies threats or abuse. Denies injuries from another. Nutritional iw screening: No deficits noted. Tuberculosis screening: No symptoms or risk factors identified. Assessment: 11:32 General: Appears in no apparent distress. Behavior is calm, cooperative. Pain: iw Complains of pain in right cheek. Neuro: Level of Consciousness is awake, obeys commands, Oriented to person, place, time, situation. 11:46 Respiratory: Airway is patent Respiratory effort is even, unlabored. EENT: swelling to iw right side of face. Derm:. 12:42 Reassessment: PT to CT now VIA stretcher. ss 13:28 Reassessment: Patient appears in no apparent distress at this time. Patient and/or iw family updated on plan of care and expected duration. Pain level reassessed. Patient is alert, oriented x 3, equal unlabored respirations, skin warm/dry/pink. Vital Signs: 11:29 BP 130 / 94; Pulse 77; Resp 16; Temp 96.0; Pulse Ox 96% on R/A; iw 13:19 Pulse 74; Pulse Ox 100% on R/A; Pain 5/10; ss ED Course: 11:14 Patient arrived in ED. ds1 11:14 Nico Blackmon MD is Private Physician. ds1 11:31 Triage completed. iw 11:32 Arm band placed on. iw 11:37 Garo Minor MD is Attending Physician. domenica 11:47 Patient has correct armband on for positive identification. Call light in reach. ss 11:47 Patient maintains SpO2 saturation greater than 95% on room air. ss 12:04 Yumiko Sharma, RN is Primary Nurse. iw 12:09 Comprehensive Metabolic Panel Sent. jw7 12:09 CBC with Diff Sent. jw7 12:09 Inserted saline lock: 20 gauge in right antecubital area, using aseptic technique. jw7 Blood collected. 12:27 EKG done, by ED staff, reviewed by Garo Minor MD. jw7 12:48 CT Facial Bones W/ Con \T\ Mpr In Process Unspecified. EDMS 13:20 initiated a transfer with Lili from the [facility] transfer center as requested by provider. eb 13:33 per Lili at the [facility] Transfer center they will have to decline the patient in transfer/ eb the [facility] surgeon [employer] clothing salesperson does not feel comfortable accepting the patient with his staff call ins and due to the facility being at capacity. 13:[address] Minor with Thuy from the [facility] transfer [place]. eb 13:40 per Thuy from [facility] they will have to decline due to being at capacity. eb 13:46 initiated a transfer with Taryn from the [facility]. eb 13:53 per Taryn at the [facility] center / [facility] will have to eb decline the patient in transfer due to the ED being on diversion status and are not accepting any transfers at this time. 13:53 No provider procedures requiring assistance completed. IV discontinued, intact, iw bleeding controlled, No redness/swelling at site. Pressure dressing applied. 13:54 Nico Blackmon MD is Referral Physician. [facility] 13:54 Jose Yoo DDS is Referral Physician. domenica Administered Medications: 12:13 Drug: Zofran (Ondansetron) 4 mg Route: IVP; Site: right antecubital; ss 12:42 Follow up: Response: No adverse reaction ss 12:14 Drug: NS 0.9% 1000 ml Route: IV; Rate: 1 bolus; Site: right antecubital; ss 13:30 Follow up: IV Status: Completed infusion iw 12:15 Drug: morphine 2 mg Route: IVP; Site: right antecubital; ss 13:00 Follow up: Response: No adverse reaction; Pain is decreased ss 12:18 Drug: Rocephin (cefTRIAXone) 2 grams Route: IV; Rate: per protocol; Site: right ss antecubital; 13:01 Follow up: IV Status: Completed infusion ss 13:00 Drug: Clindamycin 900 mg Route: IVPB; Infused Over: 30 mins; Site: right antecubital; ss 13:30 Follow up: IV Status: Completed infusion iw 13:00 Drug: Clindamycin 300 mg Route: PO; ss 14:03 Follow up: Response: No adverse reaction ss Outcome: 13:37 ER care complete, transfer ordered by . [facility] 13:53 Discharged to home ambulatory, with family. iw 13:53 Condition: good 13:53 Discharge instructions given to patient, Instructed on discharge instructions, follow up and referral plans. medication usage, Demonstrated understanding of instructions, follow-up care, medications, Prescriptions given X 3. 13:54 Discharge ordered by . domenica 14:16 Patient left the ED. Signatures: Dispatcher [employer] EDGaro Bills MD MD cha Sanford, Demi ds1 Yumiko Sharma RN RN Idania Guthrie RN RN Gilda Gonzalez Jodi jw7
[2021-11-03 14:26] VITALS: BP 130/94; TEMP 96
[2021-11-03 14:27] VITALS: O2SAT 100
== END 2021-11-03 14:16 | disposition home or self-care (01) ==
LOC: ER 11:13
DX: K02.7 Dental root caries (principal); K05.00 Acute gingivitis, plaque induced; K02.9 Dental caries, unspecified; E11.65 Type 2 diabetes mellitus with hyperglycemia; D72.829 Elevated white blood cell count, unspecified; I10 Essential (primary) hypertension; Z20.822 Contact with and (suspected) exposure to COVID-19
CPT/HCPCS: 96365; 93005; 85025; 36415; 80053; 70487; 76377; 96375; 99284; U0003; Q9967; J2270; J7030; J2405